=== PATIENT | male | born 1950 | race Caucasian/White ===

== ENCOUNTER 2022-08-02 11:15 | Inpatient (IN) | payer OTHER ==
[~2022-08-02] VITALS: Ht 177.8 cm; Wt 123.4 kg
[2022-08-02 13:33] LABS: BUN/Creatinine Ratio 13.3; Potassium 5.5 mmol/L (3.5-5.1)
[2022-08-02 13:34] LABS: Albumin 3.8 g/dL (3.4-5.0); Bilirubin, Total 1.4 mg/dL (0.2-1.0); Calcium 9.6 mg/dL (8.5-10.1); Magnesium 1.7 mg/dL (1.6-2.6)
[2022-08-02 13:35] LABS: INR 0.93 (0.9-1.15); Partial Thromboplastin Time 21.9 sec (24.6-33.4)
[2022-08-02 13:50] LABS: Basophils # (auto) 0.1 10 ^3/uL (0-0.2); Basophils % (auto) 0.5 % (0.0-2.0); Eosinophils # (auto) 0.1 10 ^3/uL (0-0.8); Eosinophils % (auto) 0.8 % (0.0-7.0); Hematocrit 48.2 % (41.0-53.0); Hemoglobin 16.3 g/dL (13.5-17.5); Lymphocytes # (auto) 1.8 10 ^3/uL (0.4-5.4); Lymphocytes % (auto) 14.8 % (10.0-50.0); Mean Corpuscular Hemoglobin 31.2 pg (28.0-32.0); Mean Corpuscular Hgb Conc. 33.9 g/dL (32.0-36.0); Mean Corpuscular Volume 91.9 fL (80.0-100.0); Monocytes # (auto) 1.5 10 ^3/uL (0-1.3); Monocytes % (auto) 12.4 % (0.0-12.0); Neutrophils # (auto) 8.5 10 ^3/uL (1.6-8.6); Neutrophils % (auto) 71.5 % (37.0-80.0); Nucleated Red Blood Cells % 0.1 %; Red Blood Cells 5.24 10^6/uL (4.5-5.90); White Blood Cell 11.9 10^3/uL (4.4-10.8)
[2022-08-02] MEDS ORDERED: ALUM & MAG HYDROX-SIMETH LIQ(MAALOX) 30 ML PO ONE (17:15)
[2022-08-02] MEDS ORDERED: SODIUM ZIRCONIUM CYCL 10 GM PAK PO ONE (17:15)
[2022-08-02] MEDS ORDERED: ENOXAPARIN SOD 30 MG/0.3 ML SYRINGE IV ONE (17:15)
[2022-08-02] MEDS ORDERED: ACETAMINOPHEN 325 MG TAB PO PRN (17:15)
[2022-08-02] MEDS ORDERED: MORPHINE SULFATE INJ 2 MG/ml SYRG IV PRN (17:15)
[2022-08-02] MEDS ORDERED: DEXTROSE (50%) 50ML SYRG IV PRN (17:15)
[2022-08-02] MEDS ORDERED: NITROGLYCERIN 0.4 MG SL TAB SL PRN ×2 (17:15)
[2022-08-02] MEDS ORDERED: ALBUTEROL SULF 2.5 MG/0.5ML(0.5%) NEB SOLN NEB PRN (18:00)
[2022-08-02] MEDS ORDERED: IPRATROPIUM BROM 0.5 MG/2.5ML INH SOL NEB PRN (18:00)
[2022-08-02] MEDS ORDERED: ENOXAPARIN SOD 40 MG/0.4 ML SYRINGE SC ONE (19:30)
[2022-08-02] MEDS: MORPHINE SULFATE 4 MG/ML SYR/VIAL IV PRN (22:49)
[2022-08-02] MEDS: ONDANSETRON HCL 4 MG/2 ML VIAL IV PRN (22:49)
[2022-08-02 23:05] VITALS: BP 134/53
[2022-08-02] MEDS: ACCU-CHEK COMFORT CURVE STRIP VI SCH (23:09)
[2022-08-02] MEDS: ATORVASTATIN 20 MG TAB PO SCH (23:17)
[2022-08-02] MEDS: SODIUM CHLORIDE 0.9% 1,000 ML IV SCH (23:17)
[2022-08-02] MEDS: amLODIPine BESYLATE 5 MG TAB PO SCH (23:18)
[2022-08-02] MEDS: InsuLIN REG 1unit/0.01ml Soln (100units/ml) SC SCH (23:27)
[2022-08-03] MEDS: MORPHINE SULFATE 4 MG/ML SYR/VIAL IV PRN ×3 (02:48→12:38)
[2022-08-03] MEDS: ONDANSETRON HCL 4 MG/2 ML VIAL IV PRN ×5 (02:48→22:17)
[2022-08-03] MEDS: SODIUM CHLORIDE 0.9% 1,000 ML IV SCH ×2 (06:35→18:15)
[2022-08-03 06:39] LABS: Basophils # (auto) 0 10 ^3/uL (0-0.2); Basophils % (auto) 0.2 % (0.0-2.0); Eosinophils # (auto) 0 10 ^3/uL (0-0.8); Hematocrit 42.2 % (41.0-53.0); Hemoglobin 14.2 g/dL (13.5-17.5); Lymphocytes % (auto) 6.8 % (10.0-50.0); Mean Corpuscular Hemoglobin 30.9 pg (28.0-32.0); Mean Corpuscular Hgb Conc. 33.7 g/dL (32.0-36.0); Mean Corpuscular Volume 91.6 fL (80.0-100.0); Monocytes # (auto) 1.2 10 ^3/uL (0-1.3); Monocytes % (auto) 8.1 % (0.0-12.0); Neutrophils # (auto) 12.6 10 ^3/uL (1.6-8.6); Neutrophils % (auto) 84.9 % (37.0-80.0); Red Blood Cells 4.61 10^6/uL (4.5-5.90); Red Cell Distribution Width 13.1 % (11.8-14.3); White Blood Cell 14.8 10^3/uL (4.4-10.8)
[2022-08-03] MEDS: ACCU-CHEK COMFORT CURVE STRIP VI SCH ×4 (07:00→22:23)
[2022-08-03 07:08] LABS: Potassium 5.5 mmol/L (3.5-5.1)
[2022-08-03 07:19] LABS: Albumin 3.5 g/dL (3.4-5.0); Bilirubin, Total 1.2 mg/dL (0.2-1.0); Calcium 9.8 mg/dL (8.5-10.1); Total Protein 7.2 g/dL (6.4-8.2)
[2022-08-03] MEDS: InsuLIN REG 1unit/0.01ml Soln (100units/ml) SC SCH ×4 (08:14→22:24)
[2022-08-03] MEDS: DOCUSATE SOD 100 MG CAP PO SCH (10:00)
[2022-08-03] MEDS ORDERED: LISINOPRIL 10 MG TAB PO SCH (10:00)
[2022-08-03] MEDS ORDERED: PANTOPRAZOLE 40 MG/10 ML VIAL INJ IV SCH (10:00)
[2022-08-03] MEDS: ASPirin 81 mg TAB PO SCH (10:34)
[2022-08-03] MEDS: ENOXAPARIN SOD 40 MG/0.4 ML SYRINGE SC SCH (10:35)
[2022-08-03] MEDS: amLODIPine BESYLATE 5 MG TAB PO SCH (10:36)
[2022-08-03] MEDS ORDERED: CALCIUM GLUC 1,000mg/50ml-NS 50 ML IV ONE (12:30)
[2022-08-03] MEDS ORDERED: ALBUTEROL SULF 2.5 MG/0.5ML(0.5%) NEB SOLN NEB ONE (12:30)
[2022-08-03] MEDS ORDERED: InsuLIN REG 1unit/0.01ml Soln (100units/ml) IV ONE (12:30)
[2022-08-03] MEDS ORDERED: DEXTROSE (50%) 50ML SYRG IV ONE (12:30)
[2022-08-03 12:49] VITALS: BP 132/66
[2022-08-03 12:51] VITALS: BP 132/66
[2022-08-03 13:00] VITALS: BP 132/66
[2022-08-03 14:13] LABS: Albumin 3.3 g/dL (3.4-5.0); Calcium 9.2 mg/dL (8.5-10.1); Potassium 4.4 mmol/L (3.5-5.1)
[2022-08-03] MEDS ORDERED: LISI-275 PO (14:16)
[2022-08-03] MEDS ORDERED: ATOR20TA50 PO (14:16)
[2022-08-03] MEDS ORDERED: CITA-73 PO (14:16)
[2022-08-03] MEDS ORDERED: HYDR12.55 PO (14:16)
[2022-08-03] MEDS ORDERED: INSU1INJ5 SC (14:16)
[2022-08-03] MEDS ORDERED: METO25TA93 PO (14:16)
[2022-08-03 14:17] LABS: BUN/Creatinine Ratio 15.5; Bilirubin, Total 1.1 mg/dL (0.2-1.0); Total Protein 7.4 g/dL (6.4-8.2)
[2022-08-03 17:00] VITALS: BP 112/57
[2022-08-03 21:45] VITALS: BP 132/71
[2022-08-03] MEDS: ATORVASTATIN 20 MG TAB PO SCH (22:17)
[2022-08-03] MEDS: PANTOPRAZOLE 40 MG TAB PO SCH (22:17)
[2022-08-04 04:56] VITALS: BP 124/59
[2022-08-04] MEDS: InsuLIN REG 1unit/0.01ml Soln (100units/ml) SC SCH ×4 (07:17→21:24)
[2022-08-04] MEDS: ACCU-CHEK COMFORT CURVE STRIP VI SCH ×4 (07:17→21:24)
[2022-08-04] MEDS: ONDANSETRON HCL 4 MG/2 ML VIAL IV PRN ×4 (07:18→22:51)
[2022-08-04 07:21] LABS: Potassium 4.4 mmol/L (3.5-5.1)
[2022-08-04 07:38] LABS: BUN/Creatinine Ratio 18.7; Calcium 9.1 mg/dL (8.5-10.1)
[2022-08-04 09:00] VITALS: BP 109/58
[2022-08-04 09:01] LABS: Urine Bacteria NONE SEEN /hpf (None Seen); Urine Blood Negative /uL (Negative); Urine Hyaline Cast FEW /lpf (0 - 2); Urine Specific Gravity 1.024 (1.001-1.035); Urine WBC 5 /hpf (0 - 3)
[2022-08-04] MEDS ORDERED: INFLUENZA QUAD 2022-2023 0.5 ML SYRG IM ONE (10:00)
[2022-08-04] MEDS: ASPirin 81 mg TAB PO SCH (10:19)
[2022-08-04] MEDS: DOCUSATE SOD 100 MG CAP PO SCH (10:19)
[2022-08-04] MEDS: PANTOPRAZOLE 40 MG TAB PO SCH (10:20)
[2022-08-04] MEDS: amLODIPine BESYLATE 5 MG TAB PO SCH (10:20)
[2022-08-04] MEDS: ENOXAPARIN SOD 40 MG/0.4 ML SYRINGE SC SCH (10:21)
[2022-08-04 13:00] VITALS: BP 149/57
[2022-08-04] MEDS ORDERED: ALUM & MAG HYDROX-SIMETH LIQ(MAALOX) 30 ML PO ONE (14:30)
[2022-08-04] MEDS: MORPHINE SULFATE INJ 2 MG/ml SYRG IV PRN ×3 (15:45→22:50)
[2022-08-04 17:00] VITALS: BP 140/47
[2022-08-04] MEDS: SUCRALFATE 1 GM/10 ML ORAL SUSP PO SCH ×2 (17:14→21:22)
[2022-08-04] MEDS: ATORVASTATIN 20 MG TAB PO SCH (21:22)
[2022-08-04] MEDS: PANTOPRAZOLE 40 MG/10 ML VIAL INJ IV SCH (21:22)
[2022-08-04] MEDS: SODIUM CHLORIDE 0.9% 1,000 ML IV SCH (21:35)
[2022-08-04 22:00] VITALS: BP 144/51
[2022-08-05 05:00] VITALS: BP 136/60
[2022-08-05] MEDS: SODIUM CHLORIDE 0.9% 1,000 ML IV SCH ×3 (06:13→07:56)
[2022-08-05] MEDS: InsuLIN REG 1unit/0.01ml Soln (100units/ml) SC SCH ×4 (06:31→21:22)
[2022-08-05] MEDS: ACCU-CHEK COMFORT CURVE STRIP VI SCH ×4 (06:31→21:24)
[2022-08-05] MEDS: SUCRALFATE 1 GM/10 ML ORAL SUSP PO SCH ×4 (06:31→21:24)
[2022-08-05 08:57] VITALS: BP 145/54
[2022-08-05] MEDS: ENOXAPARIN SOD 40 MG/0.4 ML SYRINGE SC SCH (10:06)
[2022-08-05] MEDS: PANTOPRAZOLE 40 MG/10 ML VIAL INJ IV SCH ×2 (10:06→21:23)
[2022-08-05] MEDS: ASPirin 81 mg TAB PO SCH (10:06)
[2022-08-05] MEDS: DOCUSATE SOD 100 MG CAP PO SCH (10:06)
[2022-08-05] MEDS: amLODIPine BESYLATE 5 MG TAB PO SCH (10:07)
[2022-08-05 13:00] VITALS: BP 135/54
[2022-08-05 13:59] LABS: Hepatitis C Antibody Negative (Negative)
[2022-08-05 14:29] LABS: Protein, Urine 20.8 mg/dL (0.0-11.9)
[2022-08-05 14:32] LABS: Creatinine, Urine 123 mg/dL (30.0-125.0); Sodium Urine 79 mmol/L (40-220)
[2022-08-05 16:56] VITALS: BP 143/58
[2022-08-05] MEDS: ATORVASTATIN 20 MG TAB PO SCH (21:23)
[2022-08-05 22:00] VITALS: BP 136/63
[2022-08-06] MEDS: SODIUM CHLORIDE 0.9% 1,000 ML IV SCH ×2 (04:14→13:53)
[2022-08-06 05:00] VITALS: BP 144/58
[2022-08-06] MEDS: ACCU-CHEK COMFORT CURVE STRIP VI SCH ×2 (06:22→12:07)
[2022-08-06] MEDS: SUCRALFATE 1 GM/10 ML ORAL SUSP PO SCH ×2 (06:22→12:07)
[2022-08-06] MEDS: InsuLIN REG 1unit/0.01ml Soln (100units/ml) SC SCH ×2 (06:22→12:09)
[2022-08-06] MEDS: ASPirin 81 mg TAB PO SCH (08:35)
[2022-08-06] MEDS: PANTOPRAZOLE 40 MG/10 ML VIAL INJ IV SCH (08:36)
[2022-08-06] MEDS: DOCUSATE SOD 100 MG CAP PO SCH (08:36)
[2022-08-06] MEDS: amLODIPine BESYLATE 5 MG TAB PO SCH (08:37)
[2022-08-06 09:00] VITALS: BP 141/57
[2022-08-06] MEDS ORDERED: HEPARIN SODIUM (PORCINE) 5000 UNITS/ML 1ML VIAL SC SCH (10:00)
[2022-08-06] MEDS ORDERED: SODIUM PHOSPHATES 40 MEQ in D5W 5% 250 ML IV ONE (12:15)
[2022-08-06 13:00] VITALS: BP 141/59
[2022-08-06] MEDS ORDERED: SUCR1SUS10 PO (15:21)
[2022-08-06] MEDS ORDERED: PANT40TA2 PO (15:21)
[2022-08-06 16:15] VITALS: BP 141/59
== END 2022-08-06 17:11 | disposition home or self-care (01) | DRG 383 ==
LOC: ER 11:15 → TELE 17:06 → TELE-WESTW 08-03 12:51
PROVIDERS: ADMIT Nurse Practitioner Family; ATTEND Internal Medicine
DX: K27.9 Peptic ulcer, site unspecified, unspecified as acute or chronic, without hemorrhage or perforation (principal); N17.0 Acute kidney failure with tubular necrosis; U07.1 COVID-19; E87.1 Hypo-osmolality and hyponatremia; E87.5 Hyperkalemia; E86.0 Dehydration; E11.65 Type 2 diabetes mellitus with hyperglycemia; N18.30 Chronic kidney disease, stage 3 unspecified; E11.22 Type 2 diabetes mellitus with diabetic chronic kidney disease; E78.5 Hyperlipidemia, unspecified; I12.9 Hypertensive chronic kidney disease with stage 1 through stage 4 chronic kidney disease, or unspecified chronic kidney disease; J44.9 Chronic obstructive pulmonary disease, unspecified; Z87.19 Personal history of other diseases of the digestive system; Z87.891 Personal history of nicotine dependence; Z90.49 Acquired absence of other specified parts of digestive tract
CPT/HCPCS: 36415; 71046; 74176; 76705; 76775; 80048; 80053; 80061; 81001; 82150; 82306; 82570; 82962; 83036; 83690; 83735; 83970; 84100; 84156; 84300; 84484; 85025; 85610; 85730; 86803; 87340; 87426; 87804; 93005; 93306; 94640; 96361; 96372; 96374; 96375; C9113; G0378; J1815; J2405; J7060

== ENCOUNTER 2023-10-08 12:02 | Inpatient (IN) | payer OTHER ==
[~2023-10-08] VITALS: Ht 177.8 cm; Wt 123.4 kg
[~2023-10-08 12:02] MED LIST: ATOR20TA50 PO; CITA-73 PO; HYDR12.55 PO; INSU1INJ5 SC; LISI-275 PO; METO25TA93 PO; PANT40TA2 PO; SUCR1SUS26 PO
[2023-10-08 13:00] VITALS: PULSE 60; RESP 15; O2SAT 96
[2023-10-08 13:04] LABS: Basophils # (auto) 0 10 ^3/uL (0-0.2); Basophils % (auto) 0.6 % (0.0-2.0); Eosinophils # (auto) 0.1 10 ^3/uL (0-0.8); Eosinophils % (auto) 1.7 % (0.0-7.0); Hematocrit 45.2 % (41.0-53.0); Hemoglobin 15.4 g/dL (13.5-17.5); Lymphocytes # (auto) 1.7 10 ^3/uL (0.4-5.4); Lymphocytes % (auto) 21.6 % (10.0-50.0); Mean Corpuscular Hemoglobin 31.7 pg (28.0-32.0); Monocytes # (auto) 0.7 10 ^3/uL (0-1.3); Monocytes % (auto) 8.9 % (0.0-12.0); Neutrophils # (auto) 5.3 10 ^3/uL (1.6-8.6); Neutrophils % (auto) 67.2 % (37.0-80.0); Nucleated Red Blood Cells % 0.1 %; Red Blood Cells 4.85 10^6/uL (4.5-5.90); Red Cell Distribution Width 13.7 % (11.8-14.3); White Blood Cell 7.9 10^3/uL (4.4-10.8)
[2023-10-08] MEDS ORDERED: IOHEXOL 350 MG/ML 100ML IJ ONE (13:11)
[2023-10-08 13:22] LABS: Alanine Aminotransferase 37 U/L (7-40); Alkaline Phosphatase 113 U/L (46-116); Chloride 104 mmol/L (98-107)
[2023-10-08 13:23] LABS: Albumin 4.2 g/dL (3.2-4.8); Anion Gap 6 (5-15); Aspartate Aminotransferase 20 U/L (13-40); BUN/Creatinine Ratio 9.9 (10.0-20.0); Bilirubin, Total 0.8 mg/dL (0.2-1.0); Blood Urea Nitrogen 16 mg/dL (9-23); Carbon Dioxide 26 mmol/L (20-30); Glucose 201 mg/dL (74-106); Magnesium 1.3 mg/dL (1.6-2.6); Potassium 4.3 mmol/L (3.5-5.1); Sodium 136 mmol/L (136-145); Total Protein 6.6 g/dL (5.7-8.2)
[2023-10-08 13:44] LABS: INR 1.03 (0.9-1.15); Partial Thromboplastin Time 25.8 SEC (24.5-34.5); Prothrombin Time 10.8 sec (9.3-11.8)
[2023-10-08] MEDS ORDERED: ENOXAPARIN SOD 100 MG/1 ML SYRINGE SC ONE ×2 (15:45→17:00)
[2023-10-08] MEDS ORDERED: ONDANSETRON HCL 4 MG/2 ML VIAL IV PRN (17:00)
[2023-10-08] MEDS ORDERED: HYDROcodone-ACET 5/325MG TAB PO PRN (17:00)
[2023-10-08] MEDS ORDERED: DOCUSATE SOD 100 MG CAP PO PRN (17:00)
[2023-10-08] MEDS ORDERED: HYDROmorphone HCL 2 MG/ML VL/or syr IV PRN (17:00)
[2023-10-08] MEDS ORDERED: DEXTROSE (50%) 50ML SYRG IV PRN (17:00)
[2023-10-08] MEDS ORDERED: ACETAMINOPHEN 325 MG TAB PO PRN (17:00)
[2023-10-08] MEDS ORDERED: HEPARIN SODIUM (PORCINE) 5000 UNITS/ML 1ML VIAL IV ONE ×2 (17:15→18:00)
[2023-10-08] MEDS ORDERED: HEPARIN DRIP/D5W 100UNITS/ML 250 ML IV SCH (17:15)
[2023-10-08 17:30] LABS: Basophils # (auto) 0.1 10 ^3/uL (0-0.2); Basophils % (auto) 0.7 % (0.0-2.0); Eosinophils # (auto) 0.1 10 ^3/uL (0-0.8); Eosinophils % (auto) 1.7 % (0.0-7.0); Hematocrit 43.8 % (41.0-53.0); Hemoglobin 14.7 g/dL (13.5-17.5); Lymphocytes # (auto) 1.7 10 ^3/uL (0.4-5.4); Lymphocytes % (auto) 20.5 % (10.0-50.0); Mean Corpuscular Hemoglobin 31.2 pg (28.0-32.0); Mean Corpuscular Hgb Conc. 33.5 g/dL (32.0-36.0); Mean Corpuscular Volume 93.1 fL (80.0-100.0); Monocytes # (auto) 0.8 10 ^3/uL (0-1.3); Monocytes % (auto) 9.9 % (0.0-12.0); Neutrophils # (auto) 5.7 10 ^3/uL (1.6-8.6); Neutrophils % (auto) 67.2 % (37.0-80.0); Red Cell Distribution Width 13.8 % (11.8-14.3); White Blood Cell 8.5 10^3/uL (4.4-10.8)
[2023-10-08] MEDS: InsuLIN REG 1unit/0.01ml Soln (100units/ml) SC SCH ×2 (17:39→22:39)
[2023-10-08] MEDS: ACCU-CHEK COMFORT CURVE STRIP VI SCH ×2 (17:40→22:36)
[2023-10-08 17:45] LABS: INR 1.03 (0.9-1.15); Partial Thromboplastin Time 23.6 SEC (24.5-34.5); Prothrombin Time 10.8 sec (9.3-11.8)
[2023-10-08 20:00] VITALS: PULSE 63; RESP 15; O2SAT 97
[2023-10-08] MEDS: SODIUM CHLOR 0.9% PF (SALINE LOCK) 10ML VIAL/SYR IV SCH (22:31)
[2023-10-08 23:28] LABS: Urine Bacteria NONE SEEN /hpf (None Seen); Urine Blood Negative /uL (Negative); Urine Clarity Clear (Clear); Urine Color Colorless (Yellow); Urine Protein, UAD Negative (Negative); Urine Specific Gravity 1.047 (1.001-1.035); Urine Sperm PRESENT /hpf (None Seen); Urine Urobilinogen Normal (Negative); Urine WBC 1 /hpf (0 - 3)
[2023-10-09 00:58] LABS: Prothrombin Time 11.5 sec (9.3-11.8)
[2023-10-09 01:01] LABS: Partial Thromboplastin Time > 139.0 SEC (24.5-34.5)
[2023-10-09 01:44] VITALS: BP 103/72; PULSE 62; RESP 17; TEMP 98.1; O2SAT 97
[2023-10-09] MEDS: SODIUM CHLOR 0.9% PF (SALINE LOCK) 10ML VIAL/SYR IV SCH (06:00)
[2023-10-09] MEDS: InsuLIN REG 1unit/0.01ml Soln (100units/ml) SC SCH ×2 (07:00→12:36)
[2023-10-09] MEDS: ACCU-CHEK COMFORT CURVE STRIP VI SCH ×2 (07:04→12:34)
[2023-10-09 08:00] VITALS: BP 114/49; PULSE 54; PULSE 59; RESP 18; TEMP 98; O2SAT 95
[2023-10-09 09:05] LABS: INR 1.08 (0.9-1.15); Prothrombin Time 11.3 sec (9.3-11.8)
[2023-10-09 09:16] LABS: Partial Thromboplastin Time > 139.0 SEC (24.5-34.5)
[2023-10-09 09:20] VITALS: BP 114/49; PULSE 59; RESP 18; TEMP 98; O2SAT 95
[2023-10-09] MEDS ORDERED: WARF-66 PO (09:28)
[2023-10-09] MEDS ORDERED: ENO120SY SC (09:28)
[2023-10-09] MEDS ORDERED: INFLUENZA QUAD 2023-2024 0.5 ML SYRG IM ONE (10:00)
[2023-10-09] MEDS ORDERED: ENOXAPARIN SOD 120 MG/0.8 ML SYRINGE SC SCH ×2 (10:00→12:30)
[2023-10-09] MEDS ORDERED: OPTISON 3ml Vial for INJ IV ONE (11:24)
[2023-10-09 13:05] VITALS: BP 121/53; PULSE 56; RESP 17; TEMP 98.5; O2SAT 97
[2023-10-09] MEDS ORDERED: ALBUAER3 INH (15:15)
[2023-10-09 16:51] VITALS: BP 133/59; PULSE 62; RESP 18; TEMP 98; O2SAT 97
[2023-10-09] MEDS ORDERED: WARFARIN SODIUM 5 MG TAB PO ONE (17:00)
[2023-10-09 18:47] VITALS: BP 114/49; PULSE 59; RESP 18; TEMP 36.7; O2SAT 95
[2023-10-10] MEDS ORDERED: PANTOPRAZOLE 40 MG TAB PO SCH (10:00)
== END 2023-10-09 20:08 | disposition home health service (06) | DRG 301 ==
LOC: ER 12:02 → TELE 17:01 → TELE-CENTR 17:01
PROVIDERS: ADMIT Internal Medicine; ATTEND Internal Medicine
DX: I82.412 Acute embolism and thrombosis of left femoral vein (principal); I82.432 Acute embolism and thrombosis of left popliteal vein; J44.9 Chronic obstructive pulmonary disease, unspecified; E78.5 Hyperlipidemia, unspecified; I12.9 Hypertensive chronic kidney disease with stage 1 through stage 4 chronic kidney disease, or unspecified chronic kidney disease; E11.22 Type 2 diabetes mellitus with diabetic chronic kidney disease; N18.30 Chronic kidney disease, stage 3 unspecified; K21.9 Gastro-esophageal reflux disease without esophagitis; F32.9 Major depressive disorder, single episode, unspecified; Z90.49 Acquired absence of other specified parts of digestive tract; Z87.891 Personal history of nicotine dependence
CPT/HCPCS: 36415; 70450; 71045; 71260; 74177; 80053; 81001; 82550; 82962; 83036; 83735; 83880; 84484; 85025; 85610; 85730; 90686; 93005; 93306; 93971; 97163; G0378; J1815; Q9956

== ENCOUNTER 2024-11-17 06:11 | Inpatient (IN) | payer OTHER ==
[~2024-11-17] VITALS: Ht 177.8 cm; Wt 123.4 kg
[2024-11-17] VITALS (11 sets, daily range): BP systolic 98–120; BP diastolic 37–71; PULSE 76–91; RESP 15–20; TEMP 98.1–98.2; O2SAT 90–98
[2024-11-17] MEDS: ceFAZolin 2 GM/D5W100ml 100 ML IV ONE (05:32)
[2024-11-17] MEDS: TRANEXAMIC ACID 20 ML ONE (05:55)
[2024-11-17] MEDS: CEFEPIME 1GM/ 50ML 50 ML IV ONE (05:55)
[2024-11-17] MEDS: BUPIVACAINE W/ EPINEPH 0.5% INJ 50ML MDV IJ ONE (05:55)
[2024-11-17] MEDS: VANCOMYCIN HCL 1000 MG VL ONE (05:56)
[~2024-11-17 06:11] MED LIST changes: +ALBUAER3 INH; +ENO120SY SC; +KETOROLAC TROMETH 30 MG/ML 1ML VIAL ONE; +RIVA20TA PO; +SEMA2INJ3 SC
[2024-11-17] MEDS ORDERED: MORPHINE SULF PF 5 MG/10 ML VIAL ONE (06:14)
[2024-11-17] MEDS ORDERED: KETAMINE 50mg/ML 1ml syringe ONE ×2 (06:14→09:27)
[2024-11-17] MEDS ORDERED: ONDANSETRON HCL 4 MG/2 ML VIAL ONE (06:15)
[2024-11-17] MEDS ORDERED: PROPOFOL 10 MG/ML 20 ML IV ONE ×2 (06:15→08:08)
[2024-11-17] MEDS ORDERED: GLYCOPYRROLATE 0.2 MG/ML 1ML VIAL ONE (06:15)
[2024-11-17] MEDS ORDERED: MIDAZOLAM HCL 2MG/2ML 2ml VIAL (1mg/ml) ONE (06:15)
[2024-11-17] MEDS ORDERED: ePHEDrine SULFATE 50 MG/ML AMP ONE (06:15)
[2024-11-17] MEDS ORDERED: fentaNYL CITRATE 100 MCG/2 ML VL ONE (06:15)
[2024-11-17 07:38] LABS: INR 0.92 (0.9-1.15); Partial Thromboplastin Time 22.8 SEC (24.5-34.5); Prothrombin Time 9.8 sec (9.3-11.8)
[2024-11-17] MEDS ORDERED: HYDROmorphone HCL 2 MG/ML VL/or syr ONE (09:27)
--- NOTE | 2024-11-17 09:44 | DVHOP2 ---
Operative Report - 2 Report Details Date: 11/17/24 Preop Diagnosis: LEFT KNEE DEGENERATIVE ARTHRITIS Postop Diagnosis: Same Surgeon: Guru Griffith MD Nailhead Puncher: Mat SIDDIQI Anesthesiologist: Herbert Anesthesia: Local, Regional Drains: Cristopher closed wound suction Implant: DonJoy size eight femur PS, size seven tibial base plate, size 12 polyethylene, size 35 patella Consent: The patient was informed of the risks and benefits of the procedure. These include but are not limited to complications of anesthesia, postoperative infection, incomplete relief of symptoms, recurrence of symptoms, damage to blood vessels, nerves and tendons, deep venous thrombosis, pulmonary embolism and possible need for repeat surgery in the future. Complications: None Estimated Blood Loss: 25 cc Fluids: See anesthesia record Findings: Varus deformity, osteophytes, denuded cartilage with eburnated bone Indications for Surgery: Left knee degenerative arthritis with severe pain and functional impairment despite nonoperative management Name of Procedure Performed Left total knee arthroplasty Procedure Details Procedure Details: The patient was brought to the operating room and placed on the table in the supine position after being given spinal anesthetic with adequate analgesia obtained. Surgical timeout was performed verifying patient, laterality and procedure Preop patient received IV cefepime IV Ancef and IV tranexamic acid. Tourniquet was applied to the lower extremity. Extremity was elevated, exsanguinated Esmarch, and tourniquet inflated. Lower extremity was prepped and draped in sterile fashion. Midline incision was made followed by medial arthrotomy. I exposed the anterior medial and lateral tibial plateau and the anterior distal femur. Bovie and aqua mantis were used for hemostasis. I excised the anterior meniscal tissue with Bovie. I excised a portion of the fat pad with Bovie. The patella was everted and the knee flexed. I drilled the distal femur and suctioned the hole to reduce the risk of fat emboli. I inserted intramedullary guide with 5 degree valgus setting. I pinned the distal femoral cutting block anteriorly. Intramedullary ted was removed. Distal femoral cut was made and the block removed. I brought my attention to the tibia setting up the external cutting jig for the tibia paying attention to slope, rotation and varus valgus alignment. I set the depth and pinned the block. I used the external alignment ted to aid in checking alignment. Bone cut was made and bone removed releasing soft tissue attachments with Bovie. Cutting block removed. I then checked the extension gap and deemed adequate and removed the femur and tibia pins. I flexed the knee and applied the femoral sizing guide to the femur. I checked the size and external rotation setting at 90 degrees to Whitesides line and checking the epicondylar axis. I drilled the holes then removed the sizing guide and pin. I then tapped on the 4 in 1 cutting block and checked with the rancho wing anteriorly to make sure that I would not notch then pinned the block. Cuts were made and the block and pins were removed. Bone was removed with curved osteotome. I used a rongeur to remove any remaining osteophytes at the femur and tibia. I then used a lamina string winding machine operator to open up the back alternating between the medial and lateral side. Any remaining meniscal tissue was excised with scalpel. I used curved osteotome, curette and rongeur to remove any posterior osteophytes. I prophylactically coagulated with aqua mantis. I injected 20 cc of 0.5% ropivacaine into the posterior capsule to augment the adductor block. I then tapped on the template for the box cut and pinned it. Box cut was made and bone removed. Template and pin removed. I then tapped on the femoral trial. I then brought my attention back to the tibia sizing it. I used the external alignment ted to make sure that rotation and alignment were good. I made a Bovie juan ramon at the tibial tray juan ramon identifying rotation for later use. I tried various tibial polytrials. [I then brought my attention to the patella. I sequentially dissected soft tissue with Bovie. I checked the thickness with caliper. I set the appropriate depth of cut on the cutting guide. I attached the cutting guide made my cut. I then sized the patella and made my drill holes. I then placed the patella trial with appropriate depth based on overall precut thickness. ] The patella tracked nicely without thumb pressure. I removed the trials. I pinned the tray and used the reamer and keel punch. The implants were brought into the field while bone preparation was started. I used both normal saline irrigation and the CarboJet to prepare the bone. Once cement was ready I applied cement to the tibial implant and tibial bone tapped it on and removed excess cement in usual fashion. In similar fashion I tapped on the femoral implant. I inserted the trial polyethylene and brought the knee into 30 degrees flexion. [I then applied the patella implant in similar fashion holding pressure with the pressurization device.] I irrigated with xperience irrigant. Once cement cured, I checked stability and range of motion as well as patella tracking. tourniquet was released and hemostasis maintained with aqua mantis. I inserted the polyethylene and again checked stability. I used a 2 grams of vancomycin half of which was placed deep and half superficial. I repaired the extensor mechanism with the knee in flexion with #1 Ethibond interrupted [id number]. Deep subcutaneous tissue was closed with 0 Vicryl. Superficial subcutaneous tissue was closed with 2-0 vicryl interrupted. Skin was closed with emir. I then applied the [cristopher closed wound suction]. Patient tolerated the procedure well and was brought to recovery room in stable condition. Condition Stable Disposition Still a Patient GURU GRIFFITH MD Nov 17, 2024 09:44
[2024-11-17] MEDS ORDERED: DEXTROSE (50%) 50ML SYRG IV PRN (09:45)
[2024-11-17] MEDS ORDERED: ACETAMINOPHEN 325 MG TAB PO PRN (09:45)
[2024-11-17] MEDS: SODIUM CHLORIDE 0.9% 1,000 ML IV SCH (09:45)
[2024-11-17] MEDS: KETOROLAC TROMETH 30 MG/ML 1ML VIAL IV ONE (10:00)
[2024-11-17] MEDS: ONDANSETRON HCL 4 MG/2 ML VIAL IV ONE (10:00)
[2024-11-17] MEDS ORDERED: PATIENTS OWN MEDICATION (Hydrochlorothiazide 1 TAB) PO SCH (10:00)
[2024-11-17] MEDS ORDERED: NALOXONE HCL 0.4 MG/ML VIAL IV PRN (10:00)
[2024-11-17] MEDS ORDERED: KETOROLAC TROMETH 30 MG/ML 1ML VIAL IV PRN (10:00)
[2024-11-17] MEDS ORDERED: DexAMETHasone SOD PHOS 10MG/1ML VIAL INJ IV PRN (10:00)
[2024-11-17] MEDS: PREGABALIN 25 MG CAP PO SCH (10:00)
[2024-11-17] MEDS ORDERED: PATIENTS OWN MEDICATION (Metoprolol Succinate (Metoprolol Succinate Er) 1 TAB) PO SCH (10:00)
[2024-11-17] MEDS ORDERED: PATIENTS OWN MEDICATION (Citalopram Hydrobromide 1 TAB) PO SCH (10:00)
[2024-11-17] MEDS ORDERED: ONDANSETRON HCL 4 MG/2 ML VIAL IV PRN (10:00)
[2024-11-17] MEDS ORDERED: diphenhdrAMINE HCL 50 MG/1 ML VL IV PRN (10:00)
--- NOTE | 2024-11-17 10:22 | DVH ---
XY L KNEE 3V XRAY, INDICATION: Postop left knee TECHNICAL DATA: Frontal , oblique and views were obtained of the left knee. COMPARISON: None FINDINGS: Post surgical changes from knee arthroplasty, which appears intact and in good alignment. Medial, lat eral and patellofemoral compartment joint spaces are maintained. Alignment is anatomic. IMPRESSION: Post surgical changes from knee arthroplasty, which appears intact and in good alignment.
[2024-11-17] MEDS: ACCU-CHEK COMFORT CURVE STRIP VI SCH (11:30)
[2024-11-17] MEDS: InsuLIN REG 1unit/0.01ml Soln (100units/ml) SC SCH ×2 (11:30→21:31)
[2024-11-17] MEDS: KETOROLAC TROMETH 30 MG/ML 1ML VIAL IV SCH (12:00)
[2024-11-17] MEDS ORDERED: ALBUTEROL SULF HFA 90MCG INH 200DOSE IN SCH (12:00)
[2024-11-17] MEDS: ACETAMINOPHEN 325 MG TAB PO SCH (12:00)
[2024-11-17] MEDS: oxyCODONE HCL 5MG TAB PO PRN (13:20)
[2024-11-17] MEDS: ATORVASTATIN 20 MG TAB PO SCH (13:29)
[2024-11-17] MEDS: SUCRALFATE 1 GM/10 ML ORAL SUSP PO SCH (13:30)
[2024-11-17] MEDS: PANTOPRAZOLE 40 MG TAB PO SCH (13:31)
[2024-11-17] MEDS: LISINOPRIL 5 MG TAB PO SCH (13:31)
[2024-11-17] MEDS ORDERED: ceFAZolin 2 GM/D5W50ml 50 ML IV SCH (14:00)
[2024-11-17] MEDS: ceFAZolin 2 GM/D5W50ml 50 ML IV SCH (15:40)
[2024-11-18] VITALS (16 sets, daily range): BP systolic 98–124; BP diastolic 46–63; PULSE 63–106; RESP 16–20; TEMP 97.5–98.2; O2SAT 90–98
[2024-11-18 09:42] LABS: Basophils # (auto) 0 10 ^3/uL (0-0.2); Eosinophils # (auto) 0 10 ^3/uL (0-0.8); Hematocrit 37.4 % (41.0-53.0); Hemoglobin 12.4 g/dL (13.5-17.5); Lymphocytes # (auto) 1.1 10 ^3/uL (0.4-5.4); Lymphocytes % (auto) 7.9 % (10.0-50.0); Mean Corpuscular Hemoglobin 31.4 pg (28.0-32.0); Mean Corpuscular Hgb Conc. 33.1 g/dL (32.0-36.0); Mean Corpuscular Volume 94.9 fL (80.0-100.0); Monocytes # (auto) 1.4 10 ^3/uL (0-1.3); Monocytes % (auto) 9.9 % (0.0-12.0); Neutrophils # (auto) 11.6 10 ^3/uL (1.6-8.6); Neutrophils % (auto) 82.2 % (37.0-80.0); Nucleated Red Blood Cells % 0.1 %; Platelet Count (auto) 164 10^3/uL (140-450); Red Blood Cells 3.94 10^6/uL (4.5-5.90); Red Cell Distribution Width 13.7 % (11.8-14.3); White Blood Cell 14.1 10^3/uL (4.4-10.8)
[2024-11-18] MEDS: METOPROLOL SUCCINATE XL 50 MG TAB PO SCH (10:00)
[2024-11-18] MEDS: hydroCHLOROthiazide 25 MG TAB PO SCH (10:00)
[2024-11-18 10:13] LABS: Chloride 103 mmol/L (98-107); Sodium 136 mmol/L (136-145)
[2024-11-18 10:14] LABS: Anion Gap 7 (5-15); Carbon Dioxide 26 mmol/L (20-31)
[2024-11-18 10:15] LABS: Calcium 9.3 mg/dL (8.7-10.4)
[2024-11-18 10:20] LABS: BUN/Creatinine Ratio 15.6 (10.0-20.0)
[2024-11-18] MEDS: RIVAROXABAN 10 MG TAB PO SCH (10:22)
[2024-11-18] MEDS: CITALOPRAM HYDROBR 20 MG TAB PO SCH (10:22)
[2024-11-18 10:41] LABS: Blood Urea Nitrogen 33 mg/dL (9-23); Glucose 207 mg/dL (74-106); Potassium 5.4 mmol/L (3.5-5.1)
[2024-11-18] MEDS: SODIUM CHLORIDE 0.9% 500 ML IV ONE (11:00)
--- NOTE | 2024-11-18 11:12 | DVHPN2 ---
Progress Note - Dictate Date Seen: Nov 18, 2024 Medical Necessity Reason Pt with a Central, PICC or Fol: No Subjective Patient has no complaints. He has not been out of bed with physical therapy yet. He has had a couple hours on CPM. Pain is well-controlled. vital signs Vital Sign Date Time Temp Pulse Resp B/P (MAP) Pulse Ox O2 Delivery O2 Flow Rate FiO2 11/18/24 10:00 67 112/56 11/18/24 08:50 98.1 16 97 98.1 11/18/24 08:00 Nasal Cannula* 2 28 Total Intake and Output 11/17/24 11/17/24 11/18/24 15:00 23:00 07:00 Intake Total 200 ml 360 ml Output Total 250 ml 150 ml Balance -50 ml 210 ml medications Current Medications Medications Dose Ordered Sig/Laura Route Start Time Stop Time Status Last Admin Dose Admin Acetaminophen 650 mg Q4HP PRN PO 11/17/24 09:45 Acetaminophen 650 mg Q6HR PO 11/17/24 12:00 11/18/24 06:00 650 MG Ketorolac Tromethamine 15 mg Q6HR IV 11/17/24 12:00 11/22/24 11:59 11/18/24 06:31 15 MG Pregabalin 50 mg BID PO 11/17/24 10:00 11/18/24 10:23 50 MG Oxycodone HCl 5 mg Q4HP PRN PO 11/17/24 09:45 Oxycodone HCl 10 mg Q4HP PRN PO 11/17/24 09:45 11/18/24 10:25 10 MG Diagnostic Test (Pha) 1 strip ACHS 11/17/24 11:30 11/18/24 06:31 1 STRIP Insulin Human Regular HS SC 11/17/24 22:00 11/17/24 21:31 6 UNITS Insulin Human Regular AC SC 11/17/24 11:30 11/18/24 06:36 3 UNITS Dextrose 50 ml UD PRN IV 11/17/24 09:45 Sodium Chloride 1,000 ml @ 125 mls/hr Q8H IV 11/17/24 09:45 11/17/24 09:45 125 MLS/HR Atorvastatin Calcium 20 mg DAILY PO 11/17/24 10:00 11/18/24 10:23 20 MG Lisinopril 5 mg DAILY PO 11/17/24 10:00 11/17/24 13:31 5 MG Pantoprazole Sodium 40 mg BID PO 11/17/24 10:00 11/18/24 10:21 40 MG Sucralfate 1 gm QID PO 11/17/24 12:00 11/18/24 06:31 1 GM Patient Own Medication 1 tab DAILYPRN PO 11/17/24 10:00 UNV Rivaroxaban 10 mg DAILY PO 11/18/24 10:00 11/18/24 10:22 10 MG Diphenhydramine HCl 25 mg Q4HP PRN IV 11/17/24 10:00 Ondansetron HCl 4 mg Q4HP PRN IV 11/17/24 10:00 Ketorolac Tromethamine 30 mg Q6HP PRN IV 11/17/24 10:00 11/22/24 09:59 Hydrochlorothiazide 12.5 mg DAILY PO 11/18/24 10:00 Metoprolol Succinate 25 mg DAILY PO 11/18/24 10:00 Citalopram Hydrobromide 40 mg DAILY PO 11/18/24 10:00 11/18/24 10:22 40 MG objective Alert and oriented x4 Dressing is dry and intact No calf edema or tenderness Distally neurovascularly intact laboratory and microbiology Laboratory Tests 11/18/24 08:58 Test 11/18/24 08:58 Range/Units Serum Glucose 207 H 74-106 mg/dL Assessment/Plan Postop day 1. s/p left total knee arthroplasty Chronic renal insufficiency with exacerbation Acute expected postop blood loss anemia Hyperkalemia Plan: Normal saline bolus DC thiazide Continue physical therapy Insulin sliding scale for diabetes Recheck electrolytes in the morning Plan discussed with: Patient GURU GRIFFITH MD Nov 18, 2024 11:12
[2024-11-18] MEDS ORDERED: DEXTROSE (50%) 50ML SYRG IV PRN (11:30)
[2024-11-18] MEDS: ACCU-CHEK COMFORT CURVE STRIP VI SCH (11:54)
[2024-11-18] MEDS: InsuLIN REG 1unit/0.01ml Soln (100units/ml) SC SCH ×2 (11:55→22:09)
[2024-11-19 01:00] VITALS: BP 130/63; PULSE 59; RESP 20; TEMP 98.1; O2SAT 96
[2024-11-19 05:00] VITALS: BP 130/58; PULSE 66; RESP 20; TEMP 97.7; O2SAT 97
[2024-11-19 06:21] LABS: Chloride 104 mmol/L (98-107)
[2024-11-19 06:22] LABS: Anion Gap 6 (5-15); Calcium 9.5 mg/dL (8.7-10.4); Carbon Dioxide 26 mmol/L (20-31)
[2024-11-19 06:25] LABS: Potassium 5.2 mmol/L (3.5-5.1); Sodium 136 mmol/L (136-145)
[2024-11-19 06:27] LABS: BUN/Creatinine Ratio 16.2 (10.0-20.0); Blood Urea Nitrogen 30 mg/dL (9-23); Glucose 204 mg/dL (74-106)
[2024-11-19] MEDS: oxyCODONE HCL 5MG TAB PO PRN (06:42)
[2024-11-19 07:24] LABS: Basophils # (auto) 0 10 ^3/uL (0-0.2); Basophils % (auto) 0.2 % (0.0-2.0); Eosinophils # (auto) 0.1 10 ^3/uL (0-0.8); Eosinophils % (auto) 0.8 % (0.0-7.0); Hematocrit 35.1 % (41.0-53.0); Lymphocytes # (auto) 1.3 10 ^3/uL (0.4-5.4); Lymphocytes % (auto) 12.1 % (10.0-50.0); Mean Corpuscular Hemoglobin 32.3 pg (28.0-32.0); Mean Corpuscular Hgb Conc. 34.3 g/dL (32.0-36.0); Mean Corpuscular Volume 94.2 fL (80.0-100.0); Monocytes # (auto) 1.1 10 ^3/uL (0-1.3); Monocytes % (auto) 10.3 % (0.0-12.0); Neutrophils # (auto) 8.3 10 ^3/uL (1.6-8.6); Neutrophils % (auto) 76.6 % (37.0-80.0); Platelet Count (auto) 160 10^3/uL (140-450); Red Blood Cells 3.73 10^6/uL (4.5-5.90); Red Cell Distribution Width 13.6 % (11.8-14.3); White Blood Cell 10.8 10^3/uL (4.4-10.8)
[2024-11-19 08:00] VITALS: PULSE 62
[2024-11-19 09:00] VITALS: BP 144/54; PULSE 66; RESP 17; TEMP 98; O2SAT 95
[2024-11-19] MEDS: SODIUM CHLORIDE 0.9% 500 ML IV ONE (10:33)
--- NOTE | 2024-11-19 12:03 | DVHINCON2 ---
Date Seen: Nov 19, [address] Boyd Reason for Consultation Medical management. History of Present Illness 74 years old male with past medical history of degenerative joint disease, osteoarthritis, requiring left total knee arthroplasty. The patient was brought to the hospital by orthopedic surgeon service and underwent the left total knee arthroscopy on 11/17/2024. Postop the patient was found to have some hypokalemia so was kept in the hospital for observation. The patient also had history diabetes type 2, hypertension. The patient in the meantime was doing well postop. He able to get up and walk with help from physical therapy with walker. The patient denied any headache, no blurred vision. No chest pain, no shortness a breath. No abdominal pain, constipation, diarrhea. No nocturnal dyspnea or orthopnea. Past Medical History Diabetes type 2, hypertension, degenerative joint disease with total left knee replacement Past Surgical History Knee replacement on the left side Family History: Colon cancer G8 MOTHER Diabetes mellitus G8 MOTHER G8 FATHER FH: cancer G8 FATHER G8 BROTHER Allergies: Coded Allergies: NO KNOWN ALLERGIES (Unverified , 08/02/22) Home Meds Active Scripts Enoxaparin Sodium (Lovenox) 120 Mg/0.8 Ml Inj, 120 MG SC BID, #10 INJ 1 Refill Prov:KARLEY BRANDON MD 10/09/23 Pantoprazole Sodium Sesquihydr (Protonix) 40 Mg Tab, 40 MG PO BID, #60 TAB Prov:SAHIL COLÓN MD 08/06/22 Sucralfate (CARAFATE SUSP) 1 Gm/10 Ml Ss, 10 ML PO QID, #1200 ML 3 Refills Prov:SAHIL COLÓN MD 08/06/22 Reported Medications Semaglutide (Ozempic) 2 Mg/3 Ml Inj, 2 MG SC QWEEKLY, INJ 11/15/24 Rivaroxaban (XARELTO) 20 Mg Tab, 20 MG PO DAILY, TAB 11/15/24 Albuterol Sulfate (VENTOLIN MDI) 90 Mcg Ih, 108 MCG INH Q6HP Inhale 2 puffs as directed every 6 hours 10/09/23 Atorvastatin Calcium (ATORVASTATIN CALCIUM) 20 Mg Tab, 1 TAB PO DAILY 08/03/22 Hydrochlorothiazide (Hydrochlorothiazide) 12.5 Mg Tab, 1 TAB PO DAILY 08/03/22 Insulin Detemir (Levemir Flextouch) 100 Unit/Ml Inj, SC Inject 70 units subcutaneously every morning, and 60 units subcutaneously every evening 08/03/22 Lisinopril (Lisinopril) 5 Mg Tab, 1 TAB PO DAILY 08/03/22 Citalopram Hydrobromide (Citalopram Hydrobromide) 40 Mg Tab, 1 TAB PO DAILYPRN 08/03/22 Metoprolol Succinate (Metoprolol Succinate Er) 25 Mg Tab, 1 TAB PO DAILY 08/03/22 Current Medications Current Medications Medications (Trade) Dose Ordered Sig/Laura Route PRN Reason Start Time Stop Time Status Last Admin Insulin Human Regular (InsuLIN R) HS SC 11/18/24 22:00 11/18/24 22:09 Review of Systems Pertinent positive as mentioned on HPI. All the other system has been reviewed and was negative. Vital Signs Vital Signs Date Time Temp Pulse Resp B/P (MAP) Pulse Ox O2 Delivery O2 Flow Rate FiO2 11/19/24 09:02 144/54 11/19/24 09:01 66 11/19/24 09:00 98.0 17 95 98.0 11/18/24 20:00 Nasal Cannula* 2 28 Physical Exam Patient is sitting on bed not in acute distress. HEENT: Normocephalic atraumatic pupils equal react to light and accommodation. Extraocular muscles intact, conjunctiva pink, oropharynx moist, no thrush, no exudate. Lymphatic: No lymphadenopathy Cardiovascular exam: S1, S2 was heard. No murmurs, rubs, gallops Lung: Clear on auscultation bilaterally, no wheeze, rale, rhonchi. GI: Abdominal soft, nondistended, nontenderness, positive bowel sounds. Extremity: No crepitus, cyanosis, edema. Pedal pulses present bilateral. Limited Range of motion due to pain in left knee Skin: Normal turgor, no rash. Psych: Alert, oriented x3. Neurology: No focal deficits, cranial nerve II to XII grossly intact. Labs/Diagnostic Data Labs Test 11/19/24 11:48 11/19/24 05:54 11/17/24 07:07 Range/Units POC Glucose 154 H 70-106 mg/dl White Blood Count 10.8 4.4-10.8 10^3/uL Red Blood Count 3.73 L 4.5-5.90 10^6/uL Hemoglobin 12.0 L 13.5-17.5 g/dL Hematocrit 35.1 L 41.0-53.0 % Mean Corpuscular Volume 94.2 80.0-100.0 fL Mean Corpuscular Hemoglobin 32.3 H 28.0-32.0 pg Mean Corpuscular Hemoglobin Concent 34.3 32.0-36.0 g/dL Red Cell Distribution Width 13.6 11.8-14.3 % Platelet Count 160 140-450 10^3/uL Mean Platelet Volume 8.3 6.9-10.8 fL Neutrophils (%) (Auto) 76.6 37.0-80.0 % Lymphocytes (%) (Auto) 12.1 10.0-50.0 % Monocytes (%) (Auto) 10.3 0.0-12.0 % Eosinophils (%) (Auto) 0.8 0.0-7.0 % Basophils (%) (Auto) 0.2 0.0-2.0 % Neutrophils # (Auto) 8.3 1.6-8.6 10 ^3/uL Lymphocytes # (Auto) 1.3 0.4-5.4 10 ^3/uL Monocytes # (Auto) 1.1 0-1.3 10 ^3/uL Eosinophils # (Auto) 0.1 0-0.8 10 ^3/uL Basophils # (Auto) 0 0-0.2 10 ^3/uL Nucleated Red Blood Cells 0.0 % Sodium Level 136 136-145 mmol/L Potassium Level 5.2 H 3.5-5.1 mmol/L Chloride Level 104 98-107 mmol/L Carbon Dioxide Level 26 20-31 mmol/L Anion Gap 6 5-15 Blood Urea Nitrogen 30 H 9-23 mg/dL Creatinine 1.85 H 0.700-1.30 mg/dL Glomerular Filtration Rate Calc 38 >90 mL/min BUN/Creatinine Ratio 16.2 10.0-20.0 Serum Glucose 204 H 74-106 mg/dL Calcium Level 9.5 8.7-10.4 mg/dL Prothrombin Time 9.8 9.3-11.8 sec Prothrombin Time INR 0.92 0.9-1.15 Activated Partial Thromboplast Time 22.8 L 24.5-34.5 SEC Assessment Degenerative joint disease status post left knee total replacement Hypertension Diabetes type 2 Obesity Plan: Continuing sliding scale insulin. Continuing with Lantus. At home the patient take Ozempic but is not due yet. Continuing with pain medication for pain control with morphine and Peyton. Continuing with physical therapy Continuing with hypertensive medication Discharge planning per primary team Thank you for this consultation we will follow the patient with you. This medical document was created using an electronic medical record system with [employer] direct computerized dictation system. Although this document has been carefully reviewed, there may still be some phonetic and typographical errors. These areas are purely typographical due to imperfections of the software programs, and do not reflect any compromise in the patient's medical care. Plan discussed with: Patient Date of Service: Nov 19, 2024 Billing Provider: SHUBHAM WEST MD Common Visit Codes: CONSULT ONLY Consultation Codes: 93399-BTEGUCDIC CONSULT <60MIN SHUBHAM WEST MD Nov 19, 2024 12:03
[2024-11-19 13:00] VITALS: BP 123/64; PULSE 64; RESP 17; TEMP 98; O2SAT 90
[2024-11-19 14:14] LABS: Chloride 104 mmol/L (98-107)
[2024-11-19 14:15] LABS: Anion Gap 8 (5-15); Calcium 9.2 mg/dL (8.7-10.4); Carbon Dioxide 22 mmol/L (20-31); Sodium 134 mmol/L (136-145)
[2024-11-19 14:20] LABS: BUN/Creatinine Ratio 15.6 (10.0-20.0)
[2024-11-19 14:22] LABS: Blood Urea Nitrogen 24 mg/dL (9-23); Glucose 161 mg/dL (74-106)
--- NOTE | 2024-11-19 16:17 | DVHDS2 ---
Discharge Summary Date of Admission Nov 17, 2024 at 09:44 Date of Discharge: Nov 19, 2024 Labs/Diagnostic Data: Laboratory Results Test 11/19/24 13:20 11/19/24 11:48 11/19/24 05:54 11/17/24 07:07 Sodium Level 134 mmol/L (136-145) Potassium Level 5.0 mmol/L (3.5-5.1) Chloride Level 104 mmol/L (98-107) Carbon Dioxide Level 22 mmol/L (20-31) Anion Gap 8 (5-15) Blood Urea Nitrogen 24 mg/dL (9-23) Creatinine 1.54 mg/dL (0.700-1.30) Glomerular Filtration Rate Calc 47 mL/min (>90) BUN/Creatinine Ratio 15.6 (10.0-20.0) Serum Glucose 161 mg/dL (74-106) Calcium Level 9.2 mg/dL (8.7-10.4) POC Glucose 154 mg/dl (70-106) White Blood Count 10.8 10^3/uL (4.4-10.8) Red Blood Count 3.73 10^6/uL (4.5-5.90) Hemoglobin 12.0 g/dL (13.5-17.5) Hematocrit 35.1 % (41.0-53.0) Mean Corpuscular Volume 94.2 fL (80.0-100.0) Mean Corpuscular Hemoglobin 32.3 pg (28.0-32.0) Mean Corpuscular Hemoglobin Concent 34.3 g/dL (32.0-36.0) Red Cell Distribution Width 13.6 % (11.8-14.3) Platelet Count 160 10^3/uL (140-450) Mean Platelet Volume 8.3 fL (6.9-10.8) Neutrophils (%) (Auto) 76.6 % (37.0-80.0) Lymphocytes (%) (Auto) 12.1 % (10.0-50.0) Monocytes (%) (Auto) 10.3 % (0.0-12.0) Eosinophils (%) (Auto) 0.8 % (0.0-7.0) Basophils (%) (Auto) 0.2 % (0.0-2.0) Neutrophils # (Auto) 8.3 10 ^3/uL (1.6-8.6) Lymphocytes # (Auto) 1.3 10 ^3/uL (0.4-5.4) Monocytes # (Auto) 1.1 10 ^3/uL (0-1.3) Eosinophils # (Auto) 0.1 10 ^3/uL (0-0.8) Basophils # (Auto) 0 10 ^3/uL (0-0.2) Nucleated Red Blood Cells 0.0 % Prothrombin Time 9.8 sec (9.3-11.8) Prothrombin Time INR 0.92 (0.9-1.15) Activated Partial Thromboplast Time 22.8 SEC (24.5-34.5) Other Laboratory Tests 11/19/24 13:20 11/19/24 05:54 Brief Hx & Hospital Course: Patient was brought to the hospital on Friday to undergo a left total knee arthroplasty, he tolerated the procedure well without complications and was kept overnight for postoperative observation. The following day the patient was feeling well with some postoperative knee pain but was found to have some hyperkalemia and was kept another night to evaluate for resolution. Patient has remained medically stable denying any overnight events and reports that he was able to get up and walk with the help of physical therapy and his walker and was able to get down to the nurse's station and back to his room with only some postoperative knee pain. Hyperkalemia resolved and is otherwise stable and ready to go home. Condition at Discharge: Stable Final Diagnosis/Problems List Same Discharge Disposition: Home Discharge Instruct/Medications Diet: Regular Activity: See Comment Activity comment: Patient to remain weight-bearing as tolerated with the assistance of a walker Follow Up/Referral: Patient to follow up with our office in 10-14 days for his 1st postoperative evaluation Medications: Rx sent via our outpatient EMR system Discharge Statement: "Patient was advised to return to the ER or call 911 if any headaches, dizziness, shortness of breath, chest pain, abdominal pain, bleeding, fevers, or worsening of medical condition. Patient was counseled about treatment plan, medications, possible side effects, patientverbalized understanding. All questions were answered to the best of my ability. This discharge took greater then 30 minutes in planning, reviewing documentation, counseling the patient, and discussing with other team members." ASSESSMENT ASSESSMENT Assessment Same BRANDY ROBLES Nov 19, 2024 16:17
--- NOTE | 2024-11-19 16:19 | DVHPN2 ---
Progress Note - Dictate Date Seen: Nov 19, 2024 Medical Necessity Reason Pt with a Central, PICC or Fol: No Subjective Patient was lying comfortably in bed during my evaluation reports some postoperative knee pain that is being well managed with the help of pain medication. Patient reports that he was able to get up and walk with the help of physical therapy and his walker and was able to get down to the nurse's station and back to his bed with only some postoperative knee pain. Patient is otherwise feeling well denying any other complaint or concern during my evaluation and would like to go home. vital signs Vital Sign Date Time Temp Pulse Resp B/P (MAP) Pulse Ox O2 Delivery O2 Flow Rate FiO2 11/19/24 13:00 98.0 64 17 123/64 (83) 90 98.0 11/19/24 08:00 Nasal Cannula* 2 28 Total Intake and Output 11/18/24 11/18/24 11/19/24 15:00 23:00 07:00 Intake Total 660 ml 840 ml Output Total 350 ml Balance 660 ml 490 ml medications Current Medications Medications Dose Ordered Sig/Laura Route Start Time Stop Time Status Last Admin Dose Admin Acetaminophen 650 mg Q4HP PRN PO 11/17/24 09:45 Acetaminophen 650 mg Q6HR PO 11/17/24 12:00 11/19/24 12:00 650 MG Pregabalin 50 mg BID PO 11/17/24 10:00 11/19/24 09:00 50 MG Oxycodone HCl 5 mg Q4HP PRN PO 11/17/24 09:45 11/19/24 12:11 5 MG Oxycodone HCl 10 mg Q4HP PRN PO 11/17/24 09:45 11/18/24 21:01 10 MG Sodium Chloride 1,000 ml @ 125 mls/hr Q8H IV 11/17/24 09:45 11/19/24 10:33 125 MLS/HR Atorvastatin Calcium 20 mg DAILY PO 11/17/24 10:00 11/19/24 08:59 20 MG Lisinopril 5 mg DAILY PO 11/17/24 10:00 11/19/24 09:02 5 MG Pantoprazole Sodium 40 mg BID PO 11/17/24 10:00 11/19/24 09:00 40 MG Sucralfate 1 gm QID PO 11/17/24 12:00 11/19/24 12:10 1 GM Patient Own Medication 1 tab DAILYPRN PO 11/17/24 10:00 UNV Rivaroxaban 10 mg DAILY PO 11/18/24 10:00 11/19/24 09:04 10 MG Diphenhydramine HCl 25 mg Q4HP PRN IV 11/17/24 10:00 Ondansetron HCl 4 mg Q4HP PRN IV 11/17/24 10:00 Metoprolol Succinate 25 mg DAILY PO 11/18/24 10:00 11/19/24 09:01 25 MG Citalopram Hydrobromide 40 mg DAILY PO 11/18/24 10:00 11/19/24 08:59 40 MG Diagnostic Test (Pha) 1 strip ACHS 11/18/24 11:30 11/19/24 11:55 1 STRIP Insulin Human Regular AC SC 11/18/24 11:30 11/19/24 12:12 2 UNITS Insulin Human Regular HS SC 11/18/24 22:00 11/18/24 22:09 3 UNITS Dextrose 50 ml UD PRN IV 11/18/24 11:30 objective A&O x4 in no acute distress Knee range of motion grossly limited with pain on movement Heather dressing clean, dry, intact, and maintaining suction No distal edema or calf tenderness to palpation Neurovascularly intact with cap refill less than 2 seconds laboratory and microbiology Laboratory Tests 11/19/24 13:20 11/19/24 05:54 Test 11/19/24 13:20 Range/Units Serum Glucose 161 H 74-106 mg/dL Assessment/Plan Patient to be discharged home and advised to remain weight-bearing as tolerated with the assistance of a walker. I also instructed the patient to follow up with our office in 10-14 days for his 1st postoperative evaluation to maintain his dressings clean, dry, intact, and maintaining suction until his follow up visit. Rx sent via our outpatient EMR system. I also advised the patient to call our office if he has any questions or concerns. He understood and agreed. Plan discussed with: Patient ROBLES,JENCAS SIDDIQI Nov 19, 2024 16:19
[2024-11-19 17:00] VITALS: BP 125/53; PULSE 64; RESP 17; TEMP 98.4; O2SAT 95
== END 2024-11-19 18:40 | disposition home or self-care (01) | DRG 470 ==
LOC: SUR 06:11 → OVERFLOW 09:44 → TELE-CENTR 16:06
PROVIDERS: ADMIT Orthopaedic Surgery; ATTEND Internal Medicine
PROC: 0SRD0J9 Replacement of Left Knee Joint with Synthetic Substitute, Cemented, Open Approach (ICD-10-PCS; principal; 2024-11-17 07:26)
DX: M17.12 Unilateral primary osteoarthritis, left knee (principal); D62 Acute posthemorrhagic anemia; E87.6 Hypokalemia; N18.9 Chronic kidney disease, unspecified; E66.9 Obesity, unspecified; E11.22 Type 2 diabetes mellitus with diabetic chronic kidney disease; I12.9 Hypertensive chronic kidney disease with stage 1 through stage 4 chronic kidney disease, or unspecified chronic kidney disease; E87.5 Hyperkalemia; Z80.0 Family history of malignant neoplasm of digestive organs; Z83.3 Family history of diabetes mellitus; Z79.4 Long term (current) use of insulin; Z79.899 Other long term (current) drug therapy; Z68.38 Body mass index [BMI] 38.0-38.9, adult
CPT/HCPCS: 36415; 73562; 80048; 82962; 85025; 85610; 85730; 86850; 86900; 86901; 97110; 97116; 97163; G0378; J1815; J1885; J2250; J2405; J2704

== ENCOUNTER 2025-07-25 12:10 | Inpatient (IN) | payer MEDICARE, OTHER ==
[~2025-07-25] VITALS: Ht 177.8 cm; Wt 122.7 kg
[~2025-07-25 12:10] MED LIST changes: -KETOROLAC TROMETH 30 MG/ML 1ML VIAL ONE
--- NOTE | 2025-07-25 15:10 | DVH ---
Technique: Real-time ultrasound imaging, with color Doppler and compression of the common femoral vein, femoral vein, greater saphenous vein, and popliteal vein. Indication: R/o dvt Comparison: US LT LOWER DVT on DOS: 10/08/23 Findings: The left common femoral, superficial femoral veins are compressible and demonstrate no filling defect. The left popliteal vein is partially compressible and contains thrombus. Impression: Partially occlusive deep vein thrombosis left popliteal vein. Patient's nurse practitioner Karla notified by scanning technologist at 2:54 p.m..
--- NOTE | 2025-07-25 15:22 | ED.PDOC ---
Musculoskeletal HPI Comments 74-year-old male presents to the ER with a prior MHx of CKF, COPD, diabetes, high lipids, DVT, hypertension: Surgical history of cholecystectomy, hernia repair in the chief complaint of lower extremity pain. Patient reports with the ER due from having left lower extremity pain for the past five days. The patient states on the pain being behind his left knee and thigh. Patient was here in 2023 for DVT and the US showed he had a Extensive non occlusive thrombus in the left common femoral vein, popliteal vein, superficial femoral vein and deep femoral vein. Chief Complaint: Lower Extremity Time Seen by MD: 14:00 Primary Care Provider: Brijesh Reeves Notes: Nurses Notes, Medications, Allergies Allergies: Coded Allergies: NO KNOWN ALLERGIES (Unverified , 08/02/22) Home Meds Active Scripts Enoxaparin Sodium (Lovenox) 120 Mg/0.8 Ml Inj, 120 MG SC BID, #10 INJ 1 Refill Prov:KARLEY BRANDON MD 10/09/23 Pantoprazole Sodium Sesquihydr (Protonix) 40 Mg Tab, 40 MG PO BID, #60 TAB Prov:SAHIL COLÓN MD 08/06/22 Sucralfate (CARAFATE SUSP) 1 Gm/10 Ml Ss, 10 ML PO QID, #1200 ML 3 Refills Prov:SAHIL COLÓN MD 08/06/22 Reported Medications Semaglutide (Ozempic) 2 Mg/3 Ml Inj, 2 MG SC QWEEKLY, INJ 11/15/24 Rivaroxaban (XARELTO) 20 Mg Tab, 20 MG PO DAILY, TAB 11/15/24 Albuterol Sulfate (VENTOLIN MDI) 90 Mcg Ih, 108 MCG INH Q6HP Inhale 2 puffs as directed every 6 hours 10/09/23 Atorvastatin Calcium (ATORVASTATIN CALCIUM) 20 Mg Tab, 1 TAB PO DAILY 08/03/22 Hydrochlorothiazide (Hydrochlorothiazide) 12.5 Mg Tab, 1 TAB PO DAILY 08/03/22 Insulin Detemir (Levemir Flextouch) 100 Unit/Ml Inj, SC Inject 70 units subcutaneously every morning, and 60 units subcutaneously every evening 08/03/22 Lisinopril (Lisinopril) 5 Mg Tab, 1 TAB PO DAILY 08/03/22 Citalopram Hydrobromide (Citalopram Hydrobromide) 40 Mg Tab, 1 TAB PO DAILYPRN 08/03/22 Metoprolol Succinate (Metoprolol Succinate Er) 25 Mg Tab, 1 TAB PO DAILY 08/03/22 Information Source: Patient Mode of Arrival: Ambulatory Location: Left Extremity Location: Leg Timing: Days Prehospital treatment: None Severity: Moderate Able to Move Extremity: Yes Bear Weight: Limited Pain: Moderate Hand Dominance: Right Mechanism: Spontaneous Past Medical History PAST MEDICAL HISTORY: CKF, COPD, DM, High Lipids, HTN Surgical History: Cholecystectomy, Hernia Repair Family History Family History: Reviewed,noncontributory to illness, Family hx of Cancer Social History Smoker: Quit Greater Than 1 Year, Cigar Alcohol: Occasionally Drugs: Denies Drug Use Lives In: Home Physical Exam General Appearance: No Apparent Distress, Normal HEENT: Normal ENT Inspection, Pharynx Normal, TMs Normal Neck: Full Range of Motion, Non-Tender, Normal, Normal Inspection Respiratory: Chest Non-Tender, Lungs Clear, No Accessory Muscle Use, No Respiratory Distress, Normal Breath Sounds Cardiovascular: No Edema, No JVD, No Murmur, No Gallop, Normal Peripheral Pulses, Regular Rate/Rhythm Breast Exam: Deferred Gastrointestinal: No Organomegaly, Non Tender, No Pulsatile Mass, Normal Bowel Sounds, Soft Genitalia: Deferred Pelvic: Deferred Rectal: Deferred Extremities: No calf tenderness, Normal capillary refill, Normal inspection, Normal range of motion, Non-tender, No pedal edema Musculoskeletal : Apperance: Normal Neurologic: Alert, crane ladle person II-XII nml as Tested, No Motor Deficits, Normal Affect, Normal Mood, No Sensory Deficits Cerebellar Function: Normal Reflexes: Normal Skin: Dry, Normal Color, Warm Lymphatic: No Adenopathy Was a procedure done? Was a procedure done?: No Differential Diagnosis EXT Differential Diagnosis: Cellulitis, Deep Vein Thrombosis, Fracture, Sprain X-Ray, Labs, Meds, VS Vital Signs Date Time Temp Pulse Resp B/P (MAP) Pulse Ox O2 Delivery O2 Flow Rate FiO2 07/25/25 15:47 99.4 54 20 128/53 (78) 96 99.4 07/25/25 15:36 56 07/25/25 12:15 97.6 60 20 124/66 95 97.6 Lab Test 07/25/25 15:28 Range/Units White Blood Count 9.9 4.4-10.8 10^3/uL Red Blood Count 5.21 4.5-5.90 10^6/uL Hemoglobin 16.5 13.5-17.5 g/dL Hematocrit 47.7 41.0-53.0 % Mean Corpuscular Volume 91.6 80.0-100.0 fL Mean Corpuscular Hemoglobin 31.6 28.0-32.0 pg Mean Corpuscular Hemoglobin Concent 34.5 32.0-36.0 g/dL Red Cell Distribution Width 13.7 11.8-14.3 % Platelet Count 223 140-450 10^3/uL Mean Platelet Volume 8.1 6.9-10.8 fL Neutrophils (%) (Auto) 72.5 37.0-80.0 % Lymphocytes (%) (Auto) 16.1 10.0-50.0 % Monocytes (%) (Auto) 9.0 0.0-12.0 % Eosinophils (%) (Auto) 1.8 0.0-7.0 % Basophils (%) (Auto) 0.6 0.0-2.0 % Neutrophils # (Auto) 7.2 1.6-8.6 10 ^3/uL Lymphocytes # (Auto) 1.6 0.4-5.4 10 ^3/uL Monocytes # (Auto) 0.9 0-1.3 10 ^3/uL Eosinophils # (Auto) 0.2 0-0.8 10 ^3/uL Basophils # (Auto) 0.1 0-0.2 10 ^3/uL Nucleated Red Blood Cells 0.0 % Prothrombin Time 11.7 9.3-11.8 sec Prothrombin Time INR 1.12 0.9-1.15 Sodium Level 141 136-145 mmol/L Potassium Level 4.6 3.5-5.1 mmol/L Chloride Level 102 98-107 mmol/L Carbon Dioxide Level 29 20-31 mmol/L Anion Gap 10 5-15 Blood Urea Nitrogen 15 9-23 mg/dL Creatinine 1.41 H 0.700-1.30 mg/dL Glomerular Filtration Rate Calc 53 >90 mL/min BUN/Creatinine Ratio 10.6 10.0-20.0 Serum Glucose 140 H 74-106 mg/dL Calcium Level 10.0 8.7-10.4 mg/dL PATIENT: ERIN MILLER EACCT: [id number]: [id number] : 1950 LOC: ER ROOM / BED: / AGE / SEX: 74 / M ADM STATUS: REG ER SERVICE [id number] ORDERING PHYSICIAN: JAMEY ONEIL NP PROCEDURE(s): LLDVT - LT Lower DVT REASON: R/o dvt ORDER NUMBER(s): [id number], ACCESSION NUMBER(s): [id number] Technique: Real-time ultrasound imaging, with color Doppler and compression of the common femoral vein, femoral vein, greater saphenous vein, and popliteal vein. Indication: R/o dvt Comparison: US LT LOWER DVT on DOS: 10/08/23 Findings: The left common femoral, superficial femoral veins are compressible and demonstrate no filling defect. The left popliteal vein is partially compressible and contains thrombus. Impression: Partially occlusive deep vein thrombosis left popliteal vein. Patient's nurse practitioner Karla notified by scanning technologist at 2:54 p.m.. ATED BY: JAROD HURLEY MD DICTATED DATE/TIME: 07/25/251512 SIGNED BY: JAROD HURLEY MD SIGNED DATE/TIME: 07/25/251512 CC: X-Ray, Labs, Meds, VS Comment Patient was here in 2023 for DVT and the US showed he had a Extensive non occlusive thrombus in the left common femoral vein, popliteal vein, superficial femoral vein and deep femoral vein. Patient arrives alert and oriented, ABC's intact, afebrile, vital signs stable, saturating well in room air Peripheral IV insertion+ labs were ordered. CBC was ordered to exclude anemia, blood loss, or infection. BMP was ordered to exclude electrolyte abnormalities, renal failure, dehydration, hyperglycemia PT and INR were ordered to rule out coagulopathy. Diagnostic imaging ordered by me and results interpreted by radiology Partially occlusive deep vein thrombosis left popliteal vein. The patient presents with signs and symptoms concerning for deep venous thrombosis. The differential diagnosis includes but is not limited to: DVT, thrombophlebitis, trauma, venous stasis, peripheral edema, cellulitis. Patients work up was significant for + US findings The patient denies having any shortness of breath, dyspnea on exertion. Additionally, the patient was not hypoxic and without significant EKG changes, therefore no indication for further chest imaging to evaluate for PE. They had normal oxygenation on room air and did not require any supplemental oxy gen. Heart rate has remained stable while in the ED. Nontoxic appearing. No lymphangitic spread visible. No fluid pockets or fluctuance concerning for abscess. Low concern for cellulitis or osteomyelitis. No evidence of phlegmasia cerulea or alba dolens. Time of 1ST Reevaluation: 15:29 Reevaluation 1ST: Unchanged Patient Education/Counseling: Diagnosis, Treatment Family Education/Counseling: Diagnosis, Treatment Departure 1 Departure Time of Disposition: 15:29 Impression: Primary Impression: Deep venous thrombosis of left popliteal vein Qualified Codes: I82.432 - Acute embolism and thrombosis of left popliteal vein Disposition: ADMITTED INPATIENT Condition: Serious Critical Care Note Critical Care Time?: No Stability Stability form required: No Heart Score Heart Score: Heart Score Response (Comments) Value History N/A 0 EKG N/A 0 Age N/A 0 Risk Factors N/A 0 Troponin N/A 0 Total 0 I personally scribed for JAMEY ONEIL NP ([email or web address]) on 07/25/25 at 15:22. Electronically submitted by Nirmal Banegas ([email or web address]). JAMEY ONEIL NP Jul 25, 2025 15:22
--- NOTE | 2025-07-25 15:38 | ECG ---
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
[2025-07-25 15:44] LABS: Hematocrit 47.7 % (41.0-53.0); Hemoglobin 16.5 g/dL (13.5-17.5); Mean Corpuscular Hemoglobin 31.6 pg (28.0-32.0); Mean Corpuscular Volume 91.6 fL (80.0-100.0); Nucleated Red Blood Cells % 0.0 %
[2025-07-25 15:51] LABS: Chloride 102 mmol/L (98-107); Potassium 4.6 mmol/L (3.5-5.1); Sodium 141 mmol/L (136-145)
[2025-07-25 15:52] LABS: Anion Gap 10 (5-15); Calcium 10.0 mg/dL (8.7-10.4); Carbon Dioxide 29 mmol/L (20-31)
[2025-07-25 15:57] LABS: BUN/Creatinine Ratio 10.6 (10.0-20.0); Blood Urea Nitrogen 15 mg/dL (9-23)
[2025-07-25 15:58] LABS: Glucose 140 mg/dL (74-106)
[2025-07-25 16:01] LABS: INR 1.12 (0.9-1.15); Prothrombin Time 11.7 sec (9.3-11.8)
[2025-07-25] MEDS ORDERED: ONDANSETRON HCL 4 MG/2 ML VIAL IV PRN (17:30)
[2025-07-25] MEDS ORDERED: MORPHINE SULFATE INJ 2 MG/ml SYRG IV PRN (17:30)
--- NOTE | 2025-07-25 17:32 | DVHHPRES ---
History of Present Illness Resident Creating Document: SIMONA ROSALES History of Present Illness Alvaro Segundo is a 74 male patient who presents to ED with chief complaint of five day left lower limb pain which inhibits in buttocks and radiates towards limb, it has been getting increasingly worse. Patient is adherent to medication, including Xarelto which PCP reduced dose 20 mg p.o. daily to 10 mg p.o. daily three months ago to questionable provoked DVT after undergoing left knee surgery in November 2024, patient has been active since diagnosis of DVT, he is undergoing physical therapy sessions. Associated, patient has worsening dyspnea functional class III. Denies any other associated symptoms including palpitation, hemoptysis, chest pain. Past medical history: Hypertension, dyslipidemia, diabetes, COPD, CKD, gout, questionable provoked DVT after left knee surgery on anticoagulation Surgical history: Left knee surgery in November 2024, inguinal hernia repair, cholecystectomy Family history: Mother father had heart disease, brother and mother had colon cancer Social history: Lives in [place] alone (next of kin is Olegario, his brother). 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 Denies current tobacco, alcohol and other drug abuse Allergies: Grass Home medication: Xarelto 10 mg p.o. daily, Pantoprazole, Hydrochlorothizide, Glarginine, Citalopram, Metoprolol, Atorvastatin, Lisinopril, Indomethacin PRN, Tramadol, Patient seen and examined at bedside. Currently has no new complaint. Past Medical History Per HPI Past Surgical History Per HPI Family History Per HPI Review of Systems Review of Systems Per HPI Allergies: Coded Allergies: NO KNOWN ALLERGIES (Unverified , 08/02/22) Exam Vital Signs Vital Signs Date Time Temp Pulse Resp B/P (MAP) Pulse Ox O2 Delivery O2 Flow Rate FiO2 07/25/25 15:47 99.4 54 20 128/53 (78) 96 99.4 Exam Patient lying in bed, in no acute distress General: Lucid, afebrile, mucosae are moist Cardiovascular: Normal S1 and S2. No murmurs, gallops or rubs Respiratory: Normal ventilation mechanics. Clear lung sounds on auscultation Abdomen: Soft, nontender, no organomegaly, normal bowel sounds MSK/skin: Mobilizes 4 limbs. Skin is dry and warm. Left knee surgical scar. Tenderness on palpation of left knee Neurological: Oriented in 3 spheres. No motor no sensitive deficits. Pupils are isocoric and reactive Labs/Xrays Labs Test 07/25/25 15:28 Range/Units White Blood Count 9.9 4.4-10.8 10^3/uL Red Blood Count 5.21 4.5-5.90 10^6/uL Hemoglobin 16.5 13.5-17.5 g/dL Hematocrit 47.7 41.0-53.0 % Mean Corpuscular Volume 91.6 80.0-100.0 fL Mean Corpuscular Hemoglobin 31.6 28.0-32.0 pg Mean Corpuscular Hemoglobin Concent 34.5 32.0-36.0 g/dL Red Cell Distribution Width 13.7 11.8-14.3 % Platelet Count 223 140-450 10^3/uL Mean Platelet Volume 8.1 6.9-10.8 fL Neutrophils (%) (Auto) 72.5 37.0-80.0 % Lymphocytes (%) (Auto) 16.1 10.0-50.0 % Monocytes (%) (Auto) 9.0 0.0-12.0 % Eosinophils (%) (Auto) 1.8 0.0-7.0 % Basophils (%) (Auto) 0.6 0.0-2.0 % Neutrophils # (Auto) 7.2 1.6-8.6 10 ^3/uL Lymphocytes # (Auto) 1.6 0.4-5.4 10 ^3/uL Monocytes # (Auto) 0.9 0-1.3 10 ^3/uL Eosinophils # (Auto) 0.2 0-0.8 10 ^3/uL Basophils # (Auto) 0.1 0-0.2 10 ^3/uL Nucleated Red Blood Cells 0.0 % Prothrombin Time 11.7 9.3-11.8 sec Prothrombin Time INR 1.12 0.9-1.15 Sodium Level 141 136-145 mmol/L Potassium Level 4.6 3.5-5.1 mmol/L Chloride Level 102 98-107 mmol/L Carbon Dioxide Level 29 20-31 mmol/L Anion Gap 10 5-15 Blood Urea Nitrogen 15 9-23 mg/dL Creatinine 1.41 H 0.700-1.30 mg/dL Glomerular Filtration Rate Calc 53 >90 mL/min BUN/Creatinine Ratio 10.6 10.0-20.0 Serum Glucose 140 H 74-106 mg/dL Calcium Level 10.0 8.7-10.4 mg/dL SEPSIS Sepsis Screen Date sepsis recognized/suspect: Jul 25, 2025 Time Sepsis recognized/suspect: 1214 Recent Procedure: No On Antibiotic Therapy: No Respiratory Rate >20: No Heart Rate >90: No Temp<36 C (96.8 F) or >38.3 C: No SBP <90 or MAP <65 mmHG: No New Acute Mental Status Change: No Is the patient on CPAP, BIPAP,: No Physician Orders Lt Lower Dvt (07/25/25 13:59) Admit (07/25/25:) Code Status (07/25/25) Acetaminophen Tablet (Tylenol Tablet) (07/25/25:) Ondansetron Hcl (Zofran) (07/25/25 17:) Complete Blood Count (07/26/25 04:00) Comprehensive Metabolic Panel (07/26/25 04:00) Cardiac Diet-2gna,Lofat,Lochol (07/25/25 Dinner) Echo 2d Mode Cardiac Dop (07/25/25:) Morphine Sulfate Injection (07/25/25:) Oxygen By Nasal Cannula (07/25/25) Stat Ekg For Chest Pain (07/25/25:) Notify Md Of Changes From Base (07/25/25:) Special Education Paraeducator For 24 Hours (07/25/25:) Emergency Dysrhythmia Protocol (07/25/25:) Rhythm Strips Once Every Shift (07/25/25:) Vitamin D, 25-Hydroxy (07/26/25 04:00) Vitamin B12 (07/26/25 04:00) Urinalysis (07/26/25 04:00) Thyroid Stimulating Hormone (07/26/25 04:00) Phosphorus (07/26/25 04:00) Magnesium (07/26/25 04:00) Lipid Panel (07/26/25 04:00) Hemoglobin A1c (07/26/25 04:00) Drug Screen (07/26/25 04:00) Enoxaparin Sodium (Lovenox) (07/25/25 22:00) Enoxaparin Sodium (Lovenox) (07/25/25 17:30) Vital Signs Date Time Temp Pulse Resp B/P (MAP) Pulse Ox O2 Delivery O2 Flow Rate FiO2 07/25/25 15:47 99.4 54 20 128/53 (78) 96 99.4 07/25/25 15:36 56 07/25/25 12:15 97.6 60 20 124/66 95 97.6 Laboratory Tests Test 07/25/25 15:28 White Blood Count 9.9 10^3/uL (4.4-10.8) Assessment/Plan Assessment/Plan ASSESSMENT Left popliteal partially occlusive DVT Ruled out pulmonary embolism Rule out May Allen syndrome Chronic kidney disease Diabetes Hypertension Dyslipidemia COPD with no oxygen requirement Gout PLAN Lower limb ultrasound showed partially could of DVT popliteal vein. Currently on therapeutic enoxaparin. Patient may benefit from hematological workup (antiphospholipid syndrome, factor five [place], etc.). Patient had may have unprovoked DVT, evaluate need of Coumadin versus DOACs for outpatient. Ordered V/Q scan to evaluate pulmonary embolism Patient would benefit from iliac venogram to rule out May Allen syndrome, patient has chronic kidney disease. Ordered echocardiogram Currently on insulin sliding scale Continued home medication except in the medicine due to chronic kidney disease Goals of care discussed with patient for over 18 minutes: Full code status Discussed plan with Dr. Irene, patient and nurses: Patient admitted to telemetry, on therapeutic enoxaparin, ordered complementary workup to assess severity of DVT. Patient has poor prognosis Plan discussed with: Patient, Other (Nurses) My Orders Orders - SIMONA ROSALES RESIDENT Procedure Category Date Status Time Admit ADMIT 07/25/25 Transmitted 17:28 Code Status CODE 07/25/25 Transmitted 17:28 Acetaminophen Tablet PHA 07/25/25 Transmitted (Tylenol Tablet) 17:30 Ondansetron Hcl PHA 07/25/25 Transmitted (Zofran) 17:30 Complete Blood Count LAB 07/26/25 Verified 04:00 Comprehensive LAB 07/26/25 Verified Metabolic Panel 04:00 Cardiac DIET 07/25/25 Transmitted Diet-2gna,Lofat,Lochol Dinner Echo 2d Mode Cardiac US 07/25/25 Transmitted DOP 17:28 Morphine Sulfate PHA 07/25/25 Transmitted Injection 17:30 Oxygen By Nasal RT 07/25/25 Transmitted Cannula 17:28 Stat Ekg For Chest JAYY 07/25/25 Transmitted Pain 17:28 Notify Of Changes [facility] 07/25/25 Transmitted From Base 17:28 Special Education Paraeducator For [facility] 07/25/25 Transmitted 24 Hours 17:28 Emergency Dysrhythmia [facility] 07/25/25 Transmitted Protocol 17:28 Rhythm Strips Once [place] 07/25/25 Transmitted Every Shift 17:28 Vitamin D, 25-Hydroxy LAB 07/26/25 Verified 04:00 Vitamin B12 LAB 07/26/25 Verified 04:00 Urinalysis LAB 07/26/25 Verified 04:00 Thyroid Stimulating LAB 07/26/25 Verified Hormone 04:00 Phosphorus LAB 07/26/25 Verified 04:00 Magnesium LAB 07/26/25 Verified 04:00 Lipid Panel LAB 07/26/25 Verified 04:00 Hemoglobin A1c LAB 07/26/25 Verified 04:00 Drug Screen LAB 07/26/25 Verified 04:00 Enoxaparin Sodium [facility] 07/25/25 Transmitted (Lovenox) 22:00 Enoxaparin Sodium [facility] 07/25/25 Transmitted (Lovenox) 17:30 Date of Service: Jul 25, 2025 Billing Provider: JEAN-PAUL IRENE DO Common Visit Codes: [id number] INP/OBS CARE (HIGH) Secondary Visit Codes: [id number] CARE PLAN 30 MINUTES SIMONA ROSALES RESIDENT Jul 25, 2025 17:32 JEAN-PAUL IRENE DO Jul 28, 2025 13:24
[2025-07-25] MEDS: ENOXAPARIN SOD 120 MG/0.8 ML SYRINGE SC ONE (20:19)
[2025-07-25] MEDS ORDERED: DEXTROSE (50%) 50ML SYRG IV PRN (20:45)
[2025-07-25 21:00] VITALS: BP 118/60; PULSE 55; RESP 19; TEMP 98.4; O2SAT 98
[2025-07-25] MEDS: ACCU-CHEK COMFORT CURVE STRIP VI SCH (22:37)
[2025-07-25] MEDS: InsuLIN REG 1unit/0.01ml Soln (100units/ml) SC SCH (22:38)
[2025-07-25] MEDS: ACETAMINOPHEN 325 MG TAB PO PRN (22:42)
[2025-07-25 23:39] VITALS: BP 128/72; PULSE 59; RESP 18; TEMP 98.6; O2SAT 96
[2025-07-26] VITALS (11 sets, daily range): BP systolic 121–132; BP diastolic 63–82; PULSE 55–61; RESP 17–19; TEMP 97.7–98.6; O2SAT 94–99
[2025-07-26] MEDS ORDERED: ALBUTEROL SULF HFA 90MCG INH 200DOSE IN SCH
[2025-07-26] MEDS ORDERED: ALBUTEROL SULF 2.5 MG/0.5ML(0.5%) NEB SOLN NEB PRN (01:00)
[2025-07-26] MEDS: ENOXAPARIN SOD 120 MG/0.8 ML SYRINGE SC SCH (05:50)
[2025-07-26] MEDS: SUCRALFATE 1 GM/10 ML ORAL SUSP PO SCH (05:50)
[2025-07-26 06:46] LABS: Hematocrit 42.8 % (41.0-53.0); Hemoglobin 15.0 g/dL (13.5-17.5); Mean Corpuscular Hemoglobin 31.9 pg (28.0-32.0); Mean Corpuscular Volume 90.7 fL (80.0-100.0); Nucleated Red Blood Cells % 0.1 %
[2025-07-26 06:52] LABS: Alanine Aminotransferase 24 U/L (7-40); Alkaline Phosphatase 115 U/L (46-116); Calcium 9.3 mg/dL (8.7-10.4); Triglycerides 100 mg/dL (< 150)
[2025-07-26 06:53] LABS: Albumin 3.9 g/dL (3.2-4.8); Anion Gap 10 (5-15); BUN/Creatinine Ratio 11.8 (10.0-20.0); Bilirubin, Total 1.2 mg/dL (0.2-1.0); Blood Urea Nitrogen 17 mg/dL (9-23); Carbon Dioxide 29 mmol/L (20-31); Chloride 102 mmol/L (98-107); Cholesterol 115 mg/dL (< 200); Glucose 91 mg/dL (74-106); Potassium 4.2 mmol/L (3.5-5.1); Sodium 141 mmol/L (136-145); Total Protein 6.2 g/dL (5.7-8.2)
[2025-07-26 06:55] LABS: HDL Cholesterol 35 mg/dL (40-59); Magnesium 1.4 mg/dL (1.6-2.6)
[2025-07-26 09:06] LABS: Urine Protein, UAD Negative (Negative)
[2025-07-26 09:21] LABS: Amphetamine Screen, Urine Neg (NEGATIVE); Barbiturate Scree,Urine Neg (NEGATIVE); Benzodiazephine Screen, Urine Neg (NEGATIVE); Cannabinoid Screen, Urine Neg (NEGATIVE); Cocaine Screen, Urine Neg (NEGATIVE); Opiate Scree,Urine Neg (NEGATIVE); Phencyclidine Screen, Urine Neg (NEGATIVE)
[2025-07-26] MEDS: METOPROLOL SUCCINATE XL 50 MG TAB PO SCH (10:04)
[2025-07-26] MEDS: hydroCHLOROthiazide 25 MG TAB PO SCH (10:04)
[2025-07-26] MEDS: ATORVASTATIN 20 MG TAB PO SCH (10:05)
[2025-07-26] MEDS: PANTOPRAZOLE 40 MG TAB PO SCH (10:05)
[2025-07-26] MEDS: CITALOPRAM HYDROBR 20 MG TAB PO SCH (10:05)
[2025-07-26] MEDS: LISINOPRIL 5 MG TAB PO SCH (10:06)
--- NOTE | 2025-07-26 10:21 | DVHPNRES ---
Progress Note Date Seen: Jul 26, 2025 Resident Creating Document: AL LANDRY Medical Necessity Reason Pt with a Central, PICC or Fol: No Subjective Review of Systems Patient is a 74-year-old male with past medical history of Hypertension, dyslipidemia, diabetes, COPD, CKD, gout, presented to [facility] ED with complaint of left lower limb pain for five days. The pain originates in the buttock and radiates down the limb, and it has been progressively worsening. The patient reports adherence to his medications, including Xarelto, which was reduced by his PCP from 20 mg PO daily to 10 mg PO daily three months ago for a questionable provoked DVT following left knee surgery in November 2024. Since the DVT diagnosis, the patient has remained active and is currently undergoing physical therapy sessions. Associated symptoms include worsening dyspnea, currently NYHA functional class III. He denies palpitations, hemoptysis, chest pain, or other associated symptoms. Left Lower Extremity DVT Ultrasound shows partially occlusive deep vein thrombosis left popliteal vein. The patient was started on IV antibiotics and IV fluids. Patient is admitted for further evaluation and management. Past surgical history: Left knee surgery in November 2024, inguinal hernia repair, cholecystectomy Home medications: Xarelto 10 mg p.o. daily, Pantoprazole, Hydrochlorothizide, Glarginine, Citalopram, Metoprolol, Atorvastatin, Lisinopril, Indomethacin PRN, Tramadol, Family history: Mother father had heart disease, brother and mother had colon cancer Social & Personal history: Lives in [place] alone (next of kin is Olegario, his brother). 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 Denies current tobacco, alcohol and other drug abuse Allergies: Grass Patient seen and examined at bedside. Patient is alert and oriented to time, place person and responding to all questions. Eyes: No Pain, No Vision change, No Conjunctivae inflammation, No Eyelid inflammation, No Other, No Redness ENT: No Ear pain, No Ear discharge, No Nose pain, No Nose discharge, No Nose congestion, No Mouth pain, No Mouth swelling, No Throat pain, No Throat swelling, No Other Cardiovascular: No Chest Pain, No Palpitations, No Orthopnea, No Paroxysmal No Dyspnea, No Edema, No Lt Headedness, No Other Respiratory: No Cough, No Dry, Shortness of breath, SOB with exertion, No Wheezing, No Hemoptysis, No Pleuritic Pain, No Sputum, No Other Gastrointestinal: No Nausea, No Vomiting, No Abdominal Pain, No Diarrhea, No Constipation, No Melena, No Hematochezia, No Other Genitourinary: No Dysuria, No Frequency, No Incontinence, No Hematuria, No Retention, No Other Musculoskeletal: No other, No neck pain, No shoulder pain, No arm pain, back pain, No hand pain, leg pain, No foot pain Skin: No Rash, No Lesions, No Jaundice, No Bruising, No Other Objective vital signs Vital Sign Date Time Temp Pulse Resp B/P (MAP) Pulse Ox O2 Delivery O2 Flow Rate FiO2 07/26/25 10:06 118/55 07/26/25 10:04 63 07/26/25 09:00 97.7 17 98 97.7 07/26/25 06:54 Room Air* 0 21 21 Total Intake and Output 07/25/25 07/25/25 07/26/25 15:00 23:00 07:00 Intake Total 500 ml Balance 500 ml medications Current Medications Medications Dose Ordered Sig/Laura Route Start Time Stop Time Status Last Admin Dose Admin Acetaminophen 325 mg Q4HP PRN PO 07/25/25 17:30 07/26/25 10:05 325 MG Ondansetron HCl 4 mg Q4HP PRN IV 07/25/25 17:30 Morphine Sulfate 2 mg Q4HPRN PRN IV 07/25/25 17:30 Enoxaparin Sodium 120 mg Q12HR@0600,1800 SC 07/26/25 06:00 07/26/25 05:50 120 MG Diagnostic Test (Pha) 1 strip ACHS 07/25/25 22:00 07/26/25 05:53 1 STRIP Insulin Human Regular ACHS SC 07/25/25 22:00 07/25/25 22:38 2 UNITS Dextrose 50 ml UD PRN IV 07/25/25 20:45 Atorvastatin Calcium 20 mg DAILY PO 07/26/25 10:00 07/26/25 10:05 20 MG Lisinopril 5 mg DAILY PO 07/26/25 10:00 07/26/25 10:06 5 MG Pantoprazole Sodium 40 mg BID PO 07/26/25 10:00 07/26/25 10:05 40 MG Sucralfate 1 gm QID PO 07/26/25 06:00 07/26/25 05:50 1 GM Citalopram Hydrobromide 40 mg DAILYPRN PO 07/26/25 10:00 07/26/25 10:05 40 MG Hydrochlorothiazide 12.5 mg DAILY PO 07/26/25 10:00 07/26/25 10:04 12.5 MG Metoprolol Succinate 25 mg DAILY PO 07/26/25 10:00 07/26/25 10:04 25 MG Albuterol 2.5 mg Q4HPRN PRN NEB 07/26/25 01:00 Examination General Appearance: Lucid, afebrile, mucosae are moist Head Exam: Normal inspection Neck Exam: Normal inspection. Non-tender. Normal alignment Pulmonary/Respiratory: Chest non-tender. Clear bilateral breath sounds, no crackles, no wheezing. Cardiovascular/Chest: Regular rate and rhythm. No murmurs. No JVD. Peripheral Pulses: 2+ Radial (R). 2+ Radial (L). 2+ Pedal (R). 2+ Pedal (L) Abdominal Exam: Normal bowel sounds. Soft. normal abdomen, no visible veins, Nontender. No hepatospenomegaly. No masses Ankle Exam: Negative ankle edema Lower extremities: Negative lower extremity edema Neuro/Mental Status: A&O x4. Coherent. Thoughts/Psych: Normal thought pattern. Appropriate mood and affect. Good judgement and insight MSK/skin exam: Mobilizes 4 limbs. Skin is dry and warm. Left knee surgical scar. Tenderness on palpation of left knee laboratory and microbiology Laboratory Tests 07/26/25 05:25 Test 07/26/25 05:25 Range/Units Serum Glucose 91 74-106 mg/dL Labs and/or images reviewed: Labs reviewed by me, Image(s) reviewed by me Problem List/Assessment/Plan Problem List/Assessment/Plan Left popliteal partially occlusive DVT Ruled out pulmonary embolism COPD with no oxygen requirement Left Lower Extremity DVT Ultrasound: Partially occlusive deep vein thrombosis left popliteal vein. V/Q scan: Normal exam. No evidence of pulmonary embolism. Xarelto 20 MG PO qpm pain management with Morphine and Tylenol Albuterol 2.5 MG NEB q4h prn Type 2 diabetes mellitus with hyperglycemia, uncontrolled Mild sliding scale Accu-chek VANNESA on CKD likely due to VMN Rule out May Allen syndrome Monitor renal function Avoid nephrotoxic drugs Hypertension Metoprolol 25 MG PO daily Lisinopril 5 NG PO daily Hydrochlorothiazide 12.5 MG PO daily Dyslipidemia Lipitor 20 MG PO daily Obesity, BMI 38.3 kg/m2 I have counseled the patient on healthy lifestyle modifications Diet: Cardiac PUD prophylaxis: Protonix 40mg Goals of care: Full code, discussed for >30 minutes on Plan discussed with patient Plan discussed with Dr. Irene Plan discussed with: Patient Date of Service: Jul 26, 2025 Billing Provider: JEAN-PAUL IRENE DO Common Visit Codes: [id number] INP/OBS CARE(HIGH) AL LANDRY RESIDENT Jul 26, 2025 10:21 JEAN-PAUL IRENE DO Jul 28, 2025 00:40
--- NOTE | 2025-07-26 13:29 | DVH ---
CLINICAL INFORMATION: Pulmonary embolism. PULMONARY EMBOLISM. TECHNIQUE: 4.7 mCi of Xenon-133 gas was used for the ventilation portion of the exam. Posterior ventilation imaging was obtained. 6.2 mCi of technetium 99m MAA was used for the perfusion portion of the exam. Imaging was obtained in multiple planes of projection. COMPARISON: None FINDINGS: Perfusion imaging shows no mismatched segmental or subsegmental segmental defects. Ventilation imaging shows no defects. There is normal washout. IMPRESSION: Normal exam. No evidence of pulmonary embolism.
[2025-07-26] MEDS: RIVAROXABAN 20 MG TAB PO SCH (17:05)
[2025-07-27] VITALS (7 sets, daily range): BP systolic 99–132; BP diastolic 52–72; PULSE 57–62; RESP 16–20; TEMP 97.8–98.2; O2SAT 93–94
[2025-07-27 09:11] LABS: Hematocrit 44.4 % (41.0-53.0); Hemoglobin 15.3 g/dL (13.5-17.5); Mean Corpuscular Hemoglobin 31.8 pg (28.0-32.0); Mean Corpuscular Volume 92.2 fL (80.0-100.0); Nucleated Red Blood Cells % 0.1 %
--- NOTE | 2025-07-27 09:14 | DVHSR ---
APPROVED REPORT EXAM: Two-dimensional and M-mode echocardiogram with Doppler and color Doppler. Blood Pressure: 123/69 mmHg INDICATION DVT RISK FACTORS Height: 70, Weight: 266 DIMENSIONS LVDd 5.3 (3.8-5.7cm) LA (2D) 4.6 (1.9-4.0cm) Aortic Root (2.0-3.7cm) LVDs 3.7 (2.5-4.0cm) LA (MM) (1.9-4.0cm) Aortic Cusp Exc (1.5-2.0cm) EF (%) 58.0 (55-70%) Rt. Atrium 3.7 (1.9-4.0cm) Asc. Aorta cm Mitral Valve Mitral Mitral Stenosis E wave 0.64m/s MV Mean GR. mmHg A wave 1.02m/s MV Peak GR. mmHg E/A ratio 0.6 2D MVA cm2 DECEL Time 417ms PRESS 1/2 Time 116ms IVRT ms Dop MVA 1.90cm2 Aortic Valve Aortic Valve Aortic Stenosis V1 1.23m/s AO Mean GR. 5mmHg V2 1.62m/s AO Peak GR. 11mmHg Other Information Technically limited study due to body habitus and patient position. Conclusion LV EF IS 60% MILD DYSKINESIS OF IVS NORMAL VALVES NO EFFUSION RV FUNCTION IS NORMAL NO EFFUSION
[2025-07-27 09:35] LABS: Alanine Aminotransferase 22 U/L (7-40); Anion Gap 9 (5-15); BUN/Creatinine Ratio 12.2 (10.0-20.0); Blood Urea Nitrogen 19 mg/dL (9-23); Calcium 9.6 mg/dL (8.7-10.4); Carbon Dioxide 28 mmol/L (20-31); Chloride 102 mmol/L (98-107); Potassium 4.5 mmol/L (3.5-5.1); Sodium 139 mmol/L (136-145); Total Protein 6.6 g/dL (5.7-8.2)
[2025-07-27 09:36] LABS: Albumin 4.1 g/dL (3.2-4.8); Bilirubin, Total 1.1 mg/dL (0.2-1.0)
[2025-07-27 09:38] LABS: Alkaline Phosphatase 120 U/L (46-116); Glucose 141 mg/dL (74-106)
[2025-07-27] MEDS ORDERED: RIVA20TA PO (13:52)
--- NOTE | 2025-07-27 14:56 | DVHDSRES ---
Discharge Summary Date of Admission Resident Creating Document: AL LANDRY RESIDENT Jul 25, 2025 at 17:28 Date of Discharge: Jul 27, 2025 Admitting Diagnosis Left popliteal partially occlusive DVT Labs/Diagnostic Data: Laboratory Results Test 07/27/25 10:40 07/27/25 08:35 07/26/25 08:13 07/26/25 05:25 POC Glucose 197 mg/dl (70-106) White Blood Count 6.9 10^3/uL (4.4-10.8) Red Blood Count 4.82 10^6/uL (4.5-5.90) Hemoglobin 15.3 g/dL (13.5-17.5) Hematocrit 44.4 % (41.0-53.0) Mean Corpuscular Volume 92.2 fL (80.0-100.0) Mean Corpuscular Hemoglobin 31.8 pg (28.0-32.0) Mean Corpuscular Hemoglobin Concent 34.5 g/dL (32.0-36.0) Red Cell Distribution Width 13.8 % (11.8-14.3) Platelet Count 187 10^3/uL (140-450) Mean Platelet Volume 8.2 fL (6.9-10.8) Neutrophils (%) (Auto) 59.8 % (37.0-80.0) Lymphocytes (%) (Auto) 24.9 % (10.0-50.0) Monocytes (%) (Auto) 12.2 % (0.0-12.0) Eosinophils (%) (Auto) 2.5 % (0.0-7.0) Basophils (%) (Auto) 0.6 % (0.0-2.0) Neutrophils # (Auto) 4.2 10 ^3/uL (1.6-8.6) Lymphocytes # (Auto) 1.7 10 ^3/uL (0.4-5.4) Monocytes # (Auto) 0.8 10 ^3/uL (0-1.3) Eosinophils # (Auto) 0.2 10 ^3/uL (0-0.8) Basophils # (Auto) 0 10 ^3/uL (0-0.2) Nucleated Red Blood Cells 0.1 % Sodium Level 139 mmol/L (136-145) Potassium Level 4.5 mmol/L (3.5-5.1) Chloride Level 102 mmol/L (98-107) Carbon Dioxide Level 28 mmol/L (20-31) Anion Gap 9 (5-15) Blood Urea Nitrogen 19 mg/dL (9-23) Creatinine 1.56 mg/dL (0.700-1.30) Glomerular Filtration Rate Calc 47 mL/min (>90) BUN/Creatinine Ratio 12.2 (10.0-20.0) Serum Glucose 141 mg/dL (74-106) Calcium Level 9.6 mg/dL (8.7-10.4) Total Bilirubin 1.1 mg/dL (0.2-1.0) Aspartate Amino Transferase (AST) 21 U/L (13-40) Alanine Aminotransferase (ALT) 22 U/L (7-40) Alkaline Phosphatase 120 U/L (46-116) Total Protein 6.6 g/dL (5.7-8.2) Albumin 4.1 g/dL (3.2-4.8) Urine Color Yellow (Yellow) Urine Clarity Clear (Clear) Urine pH 5.0 (5.0-9.0) Urine Specific [place] 1.018 (1.001-1.035) Urine Protein Negative (Negative) Urine Ketones Negative (Negative) Urine Blood Negative /uL (Negative) Urine Nitrite Negative (Negative) Urine Bilirubin Negative (Negative) Urine Urobilinogen Normal mg/dL (Negative) Urine Leukocyte Esterase Negative /uL (Negative) Urine RBC <1 /hpf (0 - 3) Urine Microscopic WBC < 1 /HPF (0-3) Urine Squamous Epithelial Cells Few /hpf (<5) Urine Bacteria None seen /hpf (None Seen) Urine Glucose Normal mg/dL (Normal) Urine Opiates Screen Neg (NEGATIVE) Urine Fentanyl Screen Neg (NEGATIVE) Urine Barbiturates Screen Neg (NEGATIVE) Urine Phencyclidine Screen Neg (NEGATIVE) Urine Amphetamines Screen Neg (NEGATIVE) Urine Benzodiazepines Screen Neg (NEGATIVE) Urine Cocaine Screen Neg (NEGATIVE) Urine Cannabinoids Screen Neg (NEGATIVE) Hemoglobin A1c 6.5 % A1C (<5.7) Phosphorus Level 3.9 mg/dL (2.4-5.1) Magnesium Level 1.4 mg/dL (1.6-2.6) Triglycerides Level 100 mg/dL (< 150) Cholesterol Level 115 mg/dL (< 200) LDL Cholesterol 70 mg/dL (< 100) HDL Cholesterol 35 mg/dL (40-59) Vitamin B12 Level 247 pg/mL (211-911) Vitamin D 25-Hydroxy 33.2 ng/mL (30.0-100) Thyroid Stimulating Hormone (TSH) 2.13 uIU/mL (0.55-4.78) Test 07/25/25 15:28 Prothrombin Time 11.7 sec (9.3-11.8) Prothrombin Time INR 1.12 (0.9-1.15) Other Laboratory Tests 07/27/25 08:35 Brief Hx & Hospital Course: The patient is a 74-year-old male with a past medical history of hypertension, dyslipidemia, type 2 diabetes mellitus, COPD, chronic kidney disease, and gout. He presented to [facility] ED with a 5-day history of progressive left lower limb pain originating in the buttock and radiating down the leg. He reports adherence to medications, including Xarelto, which was reduced from 20 mg to 10 mg daily three months ago for a provoked DVT following left knee surgery in November 2024. Associated symptoms include worsening dyspnea, currently NYHA class III. He denies chest pain, palpitations, hemoptysis, or other symptoms. Duplex ultrasound revealed a partially occlusive DVT in the left popliteal vein. V/Q scan was negative for pulmonary embolism. The patient was admitted for further evaluation and management. Hospital Course 07/25/25: Patient admitted with left lower limb pain and suspected DVT. Ultrasound confirmed partially occlusive DVT in the left popliteal vein. Started on IV fluids, pain control, and continued anticoagulation. 07/26/25: V/Q scan performed; results normal, ruling out pulmonary embolism. Patient remained hemodynamically stable. Pain managed with morphine and acetaminophen. 07/27/25: Echocardiogram showed LV ejection fraction of 60%, mild dyskinesis of interventricular septum, normal valves, and no effusion. COPD stable without oxygen requirement. Blood glucose monitored with sliding scale insulin. Renal function monitored for VANNESA on CKD. Patient counseled on lifestyle modifications for obesity and dyslipidemia. On evaluation today, he states he is well, pain is manageable. His vitals have remained stable for discharge home, follow up visit in discharge clinic. All medications and recommendations were thoroughly explained and the patient states he understands and agrees. Detailed discussion held with patient at bedside were all questions were answered and concerns were addressed. Examination General Appearance: Lucid, afebrile, mucosae are moist Head Exam: Normal inspection Neck Exam: Normal inspection. Non-tender. Normal alignment Pulmonary/Respiratory: Chest non-tender. Clear bilateral breath sounds, no crackles, no wheezing. Cardiovascular/Chest: Regular rate and rhythm. No murmurs. No JVD. Peripheral Pulses: 2+ Radial (R). 2+ Radial (L). 2+ Pedal (R). 2+ Pedal (L) Abdominal Exam: Normal bowel sounds. Soft. normal abdomen, no visible veins, Nontender. No hepatospenomegaly. No masses Ankle Exam: Negative ankle edema Lower extremities: Negative lower extremity edema Neuro/Mental Status: A&O x4. Coherent. Thoughts/Psych: Normal thought pattern. Appropriate mood and affect. Good judgement and insight MSK/skin exam: Mobilizes 4 limbs. Skin is dry and warm. Left knee surgical scar. Tenderness on palpation of left knee Operations or Procedures PATIENT: ERIN MILLER ACCT: [id number] UNIT: [id number] : 1950 LOC: [facility] ROOM / BED: [address] [place] [address] AGE / SEX: 74 / M ADM STATUS: ADM IN SERVICE 35 ORDERING PHYSICIAN: SIMONA ROSALES RESIDENT PROCEDURE(s): VQ - NM VQ SCAN REASON: PULMONARY EMBOLISM ORDER NUMBER(s): [id number], ACCESSION NUMBER(s): [id number] CLINICAL INFORMATION: Pulmonary embolism. PULMONARY EMBOLISM. TECHNIQUE: 4.7 mCi of Xenon-133 gas was used for the ventilation portion of the exam. Posterior ventilation imaging was obtained. 6.2 mCi of technetium 99m MAA was used for the perfusion portion of the exam. Imaging was obtained in multiple planes of projection. COMPARISON: None FINDINGS: Perfusion imaging shows no mismatched segmental or subsegmental segmental defects. Ventilation imaging shows no defects. There is normal washout. IMPRESSION: Normal exam. No evidence of pulmonary embolism. - PATIENT: ERIN MILLER ACCT: [id number] UNIT: [id number] : 1950 LOC: ER ROOM / BED: / AGE / SEX: 74 / M ADM STATUS: REG ER SERVICE 5236 ORDERING PHYSICIAN: JAMEY ONEIL NP PROCEDURE(s): LLDVT - LT Lower DVT REASON: R/o dvt ORDER NUMBER(s): [id number], ACCESSION NUMBER(s): [id number] Technique: Real-time ultrasound imaging, with color Doppler and compression of the common femoral vein, femoral vein, greater saphenous vein, and popliteal vein. Indication: R/o dvt Comparison: US LT LOWER DVT on DOS: 10/08/23 Findings: The left common femoral, superficial femoral veins are compressible and demonstrate no filling defect. The left popliteal vein is partially compressible and contains thrombus. Impression: Partially occlusive deep vein thrombosis left popliteal vein. Patient's nurse practitioner Karla notified by scanning technologist at 2:54 p.m.. PATIENT: ERIN MILLER ACCT: [id number] UNIT: [id number] : 1950 LOC: [facility] ROOM / BED: 0245T / B AGE / SEX: 74 / M ADM STATUS: ADM IN SERVICE 2551 ORDERING PHYSICIAN: SIMONA ROSALES RESIDENT PROCEDURE(s): ECIDC - ECHO 2D MODE CARDIAC DOP REASON: DVT ORDER NUMBER(s): [id number], ACCESSION NUMBER(s): [id number] APPROVED REPORT EXAM: Two-dimensional and M-mode echocardiogram with Doppler and color Doppler. Blood Pressure: 123/69 mmHg INDICATION DVT RISK FACTORS Height: 70, Weight: 266 DIMENSIONS LVDd 5.3 (3.8-5.7cm) LA (2D) 4.6 (1.9-4.0cm) Aortic Root (2.0- 3.7cm) LVDs 3.7 (2.5-4.0cm) LA (MM) (1.9-4.0cm) Aortic Cusp Exc (1.5- 2.0cm) EF (%) 58.0 (55-70%) Rt. Atrium 3.7 (1.9-4.0cm) Asc. Aorta cm Mitral Valve Mitral Mitral Stenosis E wave 0.64m/s MV Mean GR. mmHg A wave 1.02m/s MV Peak GR. mmHg E/A ratio 0.6 2D MVA cm2 DECEL Time 417ms PRESS 1/2 Time 116ms IVRT ms Dop MVA 1.90cm2 Aortic Valve Aortic Valve Aortic Stenosis V1 1.23m/s AO Mean GR. 5mmHg V2 1.62m/s AO Peak GR. 11mmHg Other Information Technically limited study due to body habitus and patient position. Conclusion LV EF IS 60% MILD DYSKINESIS OF IVS NORMAL VALVES NO EFFUSION RV FUNCTION IS NORMAL NO EFFUSION SIGNED BY: HAN ENCARNACION MD SIGNED DATE/TIME: 07/27/25 0915 PATIENT: ERIN MILLER ACCT: [id number] : 1950 [facility]GE / SEX: 74 / M ADM STATUS: ADM IN SERVICE UNIT: [id number] ORDERING PHYSICIAN: JAMEY ONEIL NP PROCEDURE(s): EKG - ELECTROCARDIGRAM ORDER NUMBER(s): [id number], ACCESSION NUMBER(s): [id number] 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 DICTATED BY:CORTEZ WANG Sr., MD DICTATED DATE/TIME:07/25/25 1536 Condition at Discharge: Stable Final Diagnosis/Problems List Left popliteal partially occlusive DVT Ruled out pulmonary embolism COPD with no oxygen requirement Type 2 diabetes mellitus with hyperglycemia, uncontrolled VANNESA on CKD likely due to VMN Hypertension Dyslipidemia Obesity, BMI 38.3 kg/m2 Discharge Disposition: Home Discharge Instruct/Medications Diet: Cardiac 2g Na,low cholest Activity: No Restrictions, As Tolerated Follow Up/Referral: Follow up with PCP within 1 week Medications: New Prescriptins: Rivaroxaban (Xarelto) 20 Mg Tab 1 Tab PO DAILY 180 Days # 180 TAB Ref 11 continue home medications Scheduled Albuterol Sulfate (Ventolin Mdi), 108 MCG INH Q6HP, (Reported) Atorvastatin Calcium (Atorvastatin Calcium), 1 TAB PO DAILY, (Reported) Citalopram Hydrobromide (Citalopram Hydrobromide), 1 TAB PO DAILYPRN, (Reported) Enoxaparin Sodium (Lovenox), 120 MG SC BID Hydrochlorothiazide (Hydrochlorothiazide), 1 TAB PO DAILY, (Reported) Lisinopril (Lisinopril), 1 TAB PO DAILY, (Reported) Metoprolol Succinate (Metoprolol Succinate Er), 1 TAB PO DAILY, (Reported) Pantoprazole Sodium Sesquihydr (Protonix), 40 MG PO BID Rivaroxaban (Xarelto), 20 MG PO DAILY, (Reported) Rivaroxaban (Xarelto), 1 TAB PO DAILY Semaglutide (Ozempic), 2 MG SC QWEEKLY, (Reported) Sucralfate (Carafate Susp), 10 ML PO QID Miscellaneous Medications Insulin Detemir (Levemir Flextouch), SC, (Reported) Discharge Statement: "Patient was advised to return to the ER or call 911 if any headaches, dizziness, shortness of breath, chest pain, abdominal pain, bleeding, fevers, or worsening of medical condition. Patient was counseled about treatment plan, medications, possible side effects, patientverbalized understanding. All questions were answered to the best of my ability. This discharge took greater then 30 minutes in planning, reviewing documentation, counseling the patient, and discussing with other team members." ASSESSMENT ASSESSMENT Assessment Left popliteal partially occlusive DVT Ruled out pulmonary embolism COPD with no oxygen requirement Type 2 diabetes mellitus with hyperglycemia, uncontrolled VANNESA on CKD likely due to VMN Hypertension Dyslipidemia Obesity, BMI 38.3 kg/m2 Date of Service: Jul 27, 2025 Billing Provider: JEAN-PAUL IRENE DO Common Visit Codes: [id number] DISCH DAY >30min AL LANDRY RESIDENT Jul 27, 2025 14:56 JEAN-PAUL IRENE DO Jul 28, 2025 00:41
== END 2025-07-27 17:40 | disposition home or self-care (01) | DRG 299 ==
LOC: ER 12:10 → OVERFLOW 17:28 → TELE-EAST 23:39
PROVIDERS: ADMIT Internal Medicine Geriatric Medicine; ATTEND Internal Medicine Geriatric Medicine
DX: I82.432 Acute embolism and thrombosis of left popliteal vein (principal); N17.0 Acute kidney failure with tubular necrosis; J44.9 Chronic obstructive pulmonary disease, unspecified; N18.9 Chronic kidney disease, unspecified; E66.9 Obesity, unspecified; E11.65 Type 2 diabetes mellitus with hyperglycemia; I12.9 Hypertensive chronic kidney disease with stage 1 through stage 4 chronic kidney disease, or unspecified chronic kidney disease; Z68.38 Body mass index [BMI] 38.0-38.9, adult; E11.22 Type 2 diabetes mellitus with diabetic chronic kidney disease; E78.5 Hyperlipidemia, unspecified; Z87.891 Personal history of nicotine dependence; Z79.4 Long term (current) use of insulin; Z79.84 Long term (current) use of oral hypoglycemic drugs; Z79.899 Other long term (current) drug therapy; Z90.49 Acquired absence of other specified parts of digestive tract
CPT/HCPCS: 36415; 78582; 80048; 80053; 80061; 80307; 81001; 82306; 82607; 82962; 83036; 83735; 84100; 84443; 85025; 85610; 93005; 93306; 93971; G0378; J1815; J2405